=== PATIENT | male | born 1955 | race African-American/Black ===

== ENCOUNTER 2018-12-19 22:37 | Inpatient (IN) | payer OTHER ==
[~2018-12-19] VITALS: Ht 167.6 cm; Wt 91.0 kg
--- NOTE | ~2018-12-19 | EEG ---
[facility] [place] [address] ELECTROENCEPHALOGRAM Name: ALLISON VALVERDE Room #: 246-P ADM IN M.R.#: [id number] ������������������ Admission: 12/20/18 ������������������ Attend Phys: Benny Dewey MD Discharge: ������������������ Date of : 57 Report #: [id number] ����������������������������������������������������������������� [id number] THIS REPORT FOR: //name// CC: Benny Dewey Earl Akkulugari DATE OF SERVICE: 12/25/2018 This patient is being evaluated for altered mental status. EEG was done by placing the electrode by standard 10-20 system of electrode placement. Both referential and sequential montages were used for recording. Background activity in this patient's EEG is about 10 Hz and 30 microvolt. It is a symmetrical activity. Photic stimulation was unremarkable. Throughout the record, no active epileptiform activity was noticed. IMPRESSION: This patient's EEG is fairly well formed and does not appear to be showing any marked abnormality. Thank you very much for this referral. ���������������������������������������� ���������������������������������������� By: ��������������������������������������������� 1823 1834 Vinny Encarnacion MD /nt
[2018-12-19 23:21] LABS: URINE BILIRUBIN NEGATIVE (Negative); URINE BLOOD 2+ (Negative); URINE CLARITY SL CLOUDY; URINE COLOR YELLOW; URINE GLUCOSE-RANDOM* NEGATIVE (Negative); URINE KETONES NEGATIVE (Negative); URINE LEUKOCYTES-REFLEX NEGATIVE (Negative); URINE NITRITE-REFLEX NEGATIVE (Negative); URINE PROTEIN (DIPSTICK) 3+ (Negative); URINE SPECIFIC GRAVITY >= 1.030 (1.005-1.035); URINE UROBILINOGEN 0.2 E.U./dl (0.2-1.0)
[2018-12-19 23:22] LABS: BE(vivo) -11.8 mmol/L (-2 to +3); HCO3 18.4 mmol/L (22.0-26.0); PCO2 64.3 mmHg (35.0-45.0); PO2 524.9 mmHg (80.0-100.0); sO2 99.8 % (92.0-98.0)
[2018-12-19 23:23] LABS: pH 7.075 (7.360-7.450)
[2018-12-19 23:28] LABS: AMP/METHAMP Negative (Negative); BARBITURATES Negative (Negative); BENZODIAZEPINES Negative (Negative); COCAINE Negative (Negative); METHADONE Negative (Negative); OPIATES Negative (Negative); PCP Negative (Negative)
[2018-12-19 23:30] LABS: ABSOLUTE NEUTROPHILS 8.6 thou/uL (1.4-8.2); BASOPHILS 0.3 % (0.0-2.0); HEMATOCRIT 30.7 % (42.0-52.0); HEMOGLOBIN 10.1 gm/dL (14.0-18.0); LYMPHOCYTES 3.4 % (24.0-44.0); MCH 29.4 pg (26.0-34.0); MCV 89.1 fL (80.0-100.0); MONOCYTES 4.6 % (1.0-8.0); PLATELET COUNT 116 thou/uL (150-400); POLYS 91.7 % (36.0-66.0); RBC 3.45 mil/uL (4.50-6.00); RDW 17.3 % (10.5-14.5); WBC 9.4 thou/uL (4.0-11.0)
[2018-12-19 23:33] LABS: AMORPHOUS URATES Many /LPF (None Seen); BACTERIA-REFLEX 1-9 Few /HPF (None Seen); CASTS None Seen /LPF (None Seen); MUCUS >6 Heavy strn/LPF (None Seen); SQUAMOUS 0-3 Few /LPF (0-3); URINE RBC 3-10 Few /HPF (0-2); URINE WBC-REFLEX 0-5 Rare /HPF (0-5)
[2018-12-19 23:49] LABS: ANION GAP 13 mmol/L (7-16); BUN 91 mg/dL (7-18); CALCIUM 8.3 mg/dL (8.5-10.1); CHLORIDE 104 mmol/L (98-107); CO2 20 mmol/L (21-32); CREATININE 5.9 mg/dL (0.7-1.3); GLUCOSE 90 mg/dL (74-106); POTASSIUM 5.9 mmol/L (3.5-5.1); SODIUM 137 mmol/L (136-145)
[2018-12-19 23:58] LABS: TROPONIN-I <0.06 ng/mL (<0.06)
[2018-12-20] VITALS (26 sets, daily range): BP systolic 144–205; BP diastolic 69–108
[2018-12-20] MEDS ORDERED: HUMALOG100 UNIT/1 SUBQ ×2 (00:30→00:39)
[2018-12-20] MEDS ORDERED: RISPERDAL 1 MG T1 MG PO (00:30)
[2018-12-20] MEDS ORDERED: FLOMAX0.4 MG PO (00:31)
[2018-12-20] MEDS ORDERED: LANTUS100 UNIT/M SUBQ (00:31)
[2018-12-20] MEDS ORDERED: LASIX 40 MG TAB40 M2 PO (00:32)
[2018-12-20] MEDS ORDERED: TYLENOL325 MG PO (00:33)
[2018-12-20] MEDS ORDERED: CARVEDILOL12.5 MG PO (00:33)
[2018-12-20] MEDS ORDERED: BENZTROPINE MES1 MG PO (00:38)
[2018-12-20] MEDS ORDERED: LUNESTA3 MG PO (00:39)
[2018-12-20] MEDS ORDERED: AFEDITAB CR60 M1 PO (00:39)
[2018-12-20] MEDS ORDERED: RISPERDAL4 MG PO (00:40)
[2018-12-20] MEDS ORDERED: TRAZODONE HCL100 MG PO (00:40)
[2018-12-20 04:31] LABS: BE(vivo) -7.2 mmol/L (-2 to +3); HCO3 19.5 mmol/L (22.0-26.0); PCO2 44.5 mmHg (35.0-45.0); PO2 187.9 mmHg (80.0-100.0); sO2 99.1 % (92.0-98.0)
--- NOTE | 2018-12-20 05:21 | NUR ---
PT ARRIVED AT 0505 FROM ED VIA STRETCHER. PT INTUBATED ON VENT. PLACED ON TELEMETRY. PT SEDATED WITH PROPOFOL. WILL ADMIT PT.
--- NOTE | 2018-12-20 08:04 | EKG ---
[place] [address] [facility] [place] [address] ELECTROCARDIOGRAM REPORT Name: ALLISON VALVERDE Room #: 246-P ADM IN M.R.#: [id number] ������������������ Admission: 12/20/18 ������������������ Attend Phys: Michael Fish MD Discharge: ������������������ Date of : 57 Report #: [id number] ����������������������������������������������������������������� [id number] THIS REPORT FOR: //name// [facility] ED Test Date: 2018-12-19 Test Time: 23:39:53 Pat Name: ALLISON VALVERDE Department: Room: 246 Gender: M Customer Counter Associate: katie : 1955 Requested By: Kam Lam Order Number: [id number] MD: Quentin Lance Measurements Intervals [place] Rate: 77 P: 79 [place]: 164 QRS: -57 QRSD: 117 T: QT: 411 QTc: 466 Interpretive Statements Sinus rhythm Probable left atrial enlargement Left anterior fascicular block Nonspecific ST segment abnormality No previous ECG available for comparison Electronically Signed On 12-20-2018 8:04:44 CDT by Quentin Lance [email or web address] ��������������������������������������������� <ELECTRONICALLY SIGNED> ���������������������������������������� By: Quentin Lance MD, [facility] ��������������������������������������������� 12/20/18 0804 [id number] Quentin Lance MD, FACC /EPI
--- NOTE | 2018-12-20 09:51 | 2DMMODE ---
[facility] [address] [place] [address] 2 D/M-MODE ECHOCARDIOGRAM Name: ALLISON VALVERDE Room #: 246-P ADM IN M.R.#: [id number] ������������� Admission: 12/20/18 ������������� Attend Phys: Michael Fish MD Discharge: ��� ������������� ��� Date of : 57 Date of Service: 12/20/18 0950 �� Report #: [id number] �������� ��������������������������������������������[id number] THIS REPORT FOR: //name// APPROVED REPORT Study performed: 12/20/2018 09:09:04 EXAM: Comprehensive 2D, Doppler, and color-flow Echocardiogram Patient Location: ICU Room #: 246 Status: routine BSA: 2.15 HR: 64 bpm BP: 170/86 mmHg Rhythm: NSR Other Information Study Quality: Good/Patient in ICU on vent. Indications Pulmonary embolism, short of air. Hx: DM, COPD. 2D Dimensions RVDd: 43.56 mm IVSd: 12.00 (7-11mm) LVOT Diam: 25.11 (18-24mm) LVDd: 56.48 mm PWd: 12.89 (7-11mm) Ascending Ao: 34.37 (22-36mm) LVDs: 43.09 (25-40mm) Aortic Root: 38.83 mm Volumes Left Atrial Volume (Systole) Single Plane 4CH: 59.44 mL Single Plane 2CH: 71.47 mL LA ESV Index: 33.00 mL/m2 Aortic Valve AoV Peak Jose Enrique.: 1.13 m/s AO Peak Gr.: 5.09 mmHg LVOT Max P.18 mmHg LVOT Max V: 0.89 m/s VALERIE Vmax: 3.92 cm2 Mitral Valve E/A Ratio: 1.2 MV Decel. Time: 185.22 ms MV E Max Jose Enrique.: 1.51 m/s [facility] [address] [place] [address] 2 D/M-MODE ECHOCARDIOGRAM Name: ALLISON VALVERDE Room #: [facility] ADM IN M.R.#: [id number] ������������� Admission: 12/20/18 ������������� Attend Phys: Michael Fish MD Discharge: ��� ������������� ��� Date of : 57 Date of Service: 12/20/18 0950 �� Report #: [id number] �������� ��������������������������������������������[id number] MV A Jose Enrique.: 1.26 m/s MV PHT: 53.71 ms IVRT: 76.12 ms Pulmonary Valve PV Peak Jose Enrique.: 0.97 m/s PV Peak Gr.: 3.77 mmHg Tricuspid Valve TR Peak Jose Enrique.: 3.35 m/s RAP Estimate: 10.00 mmHg TR Peak Gr.: 44.86 mmHg PA Pressure: 55.00 mmHg Left Ventricle Left ventricle is at the upper limits of normal. Regional wall motion is grossly normal. Mild concentric left ventricular hypertrophy. Left ventricular systolic function is low normal. LVEF is 50%. Moderate diastolic dysfunction is present (pseudonormal filling). Right Ventricle Right ventricle is at the upper limits of normal. The right ventricular systolic function is normal. Atria Left atrium is at the upper limits of normal. The right atrium size is normal. Aortic Valve The aortic valve is normal in structure. Mild aortic regurgitation. There is no aortic valvular stenosis. Mitral Valve The mitral valve is normal in structure. Severe mitral regurgitation. Tricuspid Valve The tricuspid valve is normal in structure. Mild tricuspid regurgitation. Estimated PAP is 55-60mmHg. Pulmonic Valve The pulmonary valve is normal in structure. Mild pulmonic regurgitation. Great Vessels Aortic root is mildly dilated at 4.0cm. The ascending aorta is normal in size. IVC is normal in size and collapses <50% with inspiration. [facility] [address] [place] [address] 2 D/M-MODE ECHOCARDIOGRAM Name: ALLISON VALVERDE Room #: 246-P ADM IN M.R.#: [id number] ������������� Admission: 12/20/18 ������������� Attend Phys: Michael Fish MD Discharge: ��� ������������� ��� Date of : 57 Date of Service: 12/20/18 0950 �� Report #: [id number] �������� ��������������������������������������������[id number] Pericardium Trace to small posterior pericardial effusion <Conclusion> Left ventricular systolic function is low normal. Regional wall motion is grossly normal. LVEF is 50%. Moderate diastolic dysfunction The aortic valve is normal in structure. Mild aortic regurgitation, no stenosis. The mitral valve is normal in structure. Severe mitral regurgitation. Mild tricuspid regurgitation. Estimated pulmonary artery pressure of 55-60mmHg. IVC is normal in size and collapses <50% with inspiration. ��������������������������������������������� <ELECTRONICALLY SIGNED> ���������������������������������������� By: Quentin Lance MD, [facility] ��������������������������������������������� 12/20/18949 9 9 Quentin Lance MD, FAC /INF
[2018-12-20 10:37] LABS: ALBUMIN 2.1 g/dL (3.4-5.0); CALCIUM 7.7 mg/dL (8.5-10.1); CREATININE 6.1 mg/dL (0.7-1.3)
[2018-12-20 10:40] LABS: POTASSIUM 5.9 mmol/L (3.5-5.1)
--- NOTE | 2018-12-20 10:52 | NUR ---
WOUND CONSULT; BILATERAL ISCHIAL WOUNDS IDENTIFIED CURRENTLY IT IS A STAGE 2, S/S SUGGEST THESE WOUNDS WERE A HIGHER STAGE PREVIOUSLY. RECOMMENDATIONS; APPLY ZGUARD THICKLY EACH TIME THE PATIENT IS TURNED. RN PRESENT
--- NOTE | 2018-12-20 12:05 | NUR ---
Case opened to follow for dc planning. Pt is currently in ICU and unable to complete the cm assessment. Pt's mother Lizzie and Sister Meredith visiting at this time. They report that the pt has been living at [facility] orthotist/prosthetist care since earlier this month. Prior to his admission at [facility] he was in a fdc and hospitalized in [place], [place]. They had him placed here in the area so they could be close to him. The pt recently stopped dialysis about 2 weeks ago. In [facility] he was living at [facility] and it was difficult for family to go and visit him. Nursing is working on getting records from [facility] from his recent inpt hospital stay there. The family reports that he does not have a dpoa or advanced directive in place. He is normally able to make his own decisions and sign paperwork. Message left for admissions at [facility] to confirm they are holding his bed for his return to detention care. Emergency contact info updated and support provided to pt's family. Will follow.
[2018-12-20 12:12] LABS: BE(vivo) -2.8 mmol/L (-2 to +3); PCO2 44.1 mmHg (35.0-45.0); PO2 167.5 mmHg (80.0-100.0); pH 7.335 (7.360-7.450)
--- NOTE | 2018-12-20 12:30 | NUR ---
Pt Mother, sister and brother came by to visit. Propofol was stopped for wake- up assessment. Pt did awaken. Pt opened his eyes and appearted to focus gaze on his family members. Pt attempted to sit up and lean forward in the bed in order to reach his endotracheal tube wtih the restrained hands. Propofol was resumed to prevent accidental extubation. Results of ABG were reported to Dr Garcia.
--- NOTE | 2018-12-20 16:05 | NUR ---
PT RESIDES AT [facility] FAXED H/P TO FACILITY LEFT MSG WITH KERRI IN ADM OF UPDATE FAXED. DCP TO FOLLOW.
--- NOTE | 2018-12-20 19:15 | NUR ---
Pt has remained sedated with Propofol. One dose of Hydralazine given for elevated blood pressure. Large volume of drainage (1400 ml) from OG tube this shift. Gastric drainage is brownish color. Report given to nurse assuming care.
--- NOTE | 2018-12-20 20:39 | NUR ---
[id number] PLACED RT IJ FOR SEPSIS. PLEASE SEE INSERTION NOTE FOR DETAILS
[2018-12-20 22:34] LABS: HEMATOCRIT 27.6 % (42.0-52.0); HEMOGLOBIN 9.2 gm/dL (14.0-18.0)
[2018-12-20 22:42] LABS: CALCIUM 7.8 mg/dL (8.5-10.1); CREATININE 5.9 mg/dL (0.7-1.3); MAGNESIUM 1.8 mg/dL (1.8-2.4)
[2018-12-20 22:49] LABS: POTASSIUM 4.4 mmol/L (3.5-5.1)
[2018-12-21] VITALS (41 sets, daily range): BP systolic 107–208; BP diastolic 66–93
[2018-12-21 05:46] LABS: ABSOLUTE NEUTROPHILS 4.2 thou/uL (1.4-8.2); BASOPHILS 0.4 % (0.0-2.0); EOSINOPHILS 0.6 % (0.0-3.0); HEMATOCRIT 27.3 % (42.0-52.0); HEMOGLOBIN 9.3 gm/dL (14.0-18.0); LYMPHOCYTES 2.3 % (24.0-44.0); MCH 29.6 pg (26.0-34.0); MCHC 33.9 g/dL (28.0-37.0); MCV 87.2 fL (80.0-100.0); MONOCYTES 9.4 % (1.0-8.0); PLATELET COUNT 87 thou/uL (150-400); POLYS 87.3 % (36.0-66.0); RBC 3.13 mil/uL (4.50-6.00); RDW 17.4 % (10.5-14.5); WBC 4.8 thou/uL (4.0-11.0)
[2018-12-21 05:56] LABS: PROTIME 10.7 Seconds (9.3-11.4)
[2018-12-21 06:05] LABS: ALBUMIN 1.9 g/dL (3.4-5.0); DIRECT BILIRUBIN < 0.1 mg/dL (<0.1-0.3); LIPASE 76 U/L (73-393); SGOT 20 U/L (15-37); SGPT 28 U/L (30-65); TOTAL BILIRUBIN 0.2 mg/dL (<0.1-1.0); TOTAL PROTEIN 4.9 g/dL (6.4-8.2)
[2018-12-21 06:10] LABS: ALBUMIN 1.9 g/dL (3.4-5.0); CALCIUM 7.6 mg/dL (8.5-10.1); CREATININE 5.8 mg/dL (0.7-1.3); PHOSPHORUS 9.2 mg/dL (2.5-4.9); POTASSIUM 4.4 mmol/L (3.5-5.1)
--- NOTE | 2018-12-21 06:10 | NUR ---
PT SEDATED ON VENT. FOLLOW SIMPLE COMMANDS, RESTLESS AND AGITATED ON SEDATION VACATION. MEDICATED FOR PAIN RELIEF. SB, BP HIGH, HR IN THE 50S UNABLE TO GIVE LOPRESSOR. TOLERATING VENT SETTINGS. OG IN PLACE, OUTPUT NOTED. URINE OUTPUT NOTED. NO COMPLAINS PRESENTLY. PROTONIX GTT ONGOING, IV FLUIDS AND PROPOFOL AT 8MG/HR. WILL CONTINUE MONITOR.
[2018-12-21 10:18] LABS: BE(vivo) 2.9 mmol/L (-2 to +3); HCO3 27.2 mmol/L (22.0-26.0); PCO2 40.9 mmHg (35.0-45.0); PO2 113.8 mmHg (80.0-100.0); pH 7.441 (7.360-7.450); sO2 98.3 % (92.0-98.0)
--- NOTE | 2018-12-21 10:41 | NUR ---
Nutrition: Pt npo day 2 on vent. REC initiate enteral feeds as medically appropriate-- Nepro to reach 50 mL/hr goal
--- NOTE | 2018-12-21 12:02 | HC ---
[facility] [address] [place] [place] [address] CONSULTATION Name: ALLISON VALVERDE Room #: 246-P ADM IN M.R.#: [id number] Admission: 12/20/18 ������������������ Attend Phys: Benny Dewey MD Discharge: ������������������ Date of : 57 Report #: [id number] THIS REPORT FOR: //name// CC: Michael Alvarez TYPE OF REPORT: Pulmonary consultation. REFERRING PHYSICIAN: Michael Fish M.D. REASON FOR REFERRAL: Acute respiratory failure. HISTORY OF PRESENT ILLNESS: The patient is a 63-year-old white male who was brought to the ED with altered mental status and dyspnea. He was found to be in respiratory distress and was subsequently intubated in the ED. A Pulmonary consultation was requested. Most of the history is obtained from the records as the patient is intubated. The patient has a significant medical history. He has a history of diabetes mellitus, end-stage renal disease. According to records, the patient had recently refused to continue further hemodialysis. Hemodialysis catheter was recently discontinued. The patient had normally lived in a long term at [place], [place] due to mental illness. Due to his medical condition and mental illness, he was recently admitted to a [facility]. He was subsequently transferred to [facility] to be closer to family. The patient was said to be more short of breath on the day of admission along with altered mental status. Narcan was given. The patient apparently responded to Narcan. Currently, he is stable, intubated. PAST MEDICAL HISTORY: Notable for chronic kidney disease; diabetes mellitus; COPD; end-stage renal disease, had been on dialysis recently, though the patient does make urine; history of bipolar disorder; chronic kidney disease and questionable history of pancreatitis. PAST SURGICAL HISTORY: Status post cholecystectomy. ALLERGIES: PROLIXIN, which caused severe agitation and seizure; PENICILLIN, causes altered mental status; BENADRYL, causes headaches; HALDOL causes nausea and vomiting; THORAZINE, causes syncope and he is allergic to CONTRAST DYE and LATEX, reactions unspecified and MELLARIL, reactions unspecified. MEDICATIONS: From the facility include Risperdal 1 mg once a day, insulin supplements, Flomax 0.4 mg p.o. at bedtime, Lasix 40 mg once a day, Coreg 12.[address] [address] CONSULTATION Name: ALLISON VALVERDE Room #: 246-P [facility] IN M.R.#: [id number] Admission: 12/20/18 ������������������ Attend Phys: Benny Dewey MD Discharge: ������������������ Date of : 57 Report #: [id number] mg once a day, Tylenol, Cogentin 1 mg once a day, Lunesta 3 mg p.o. at bedtime, nifedipine 60 mg p.o. b.i.d., Risperdal 4 mg p.o. at bedtime and trazodone 200 mg once a day. FAMILY HISTORY: Noncontributory. SOCIAL HISTORY: Current smoker about a pack a day for the last 48 years. Past history of tobacco use. REVIEW OF SYSTEMS: Deferred as the patient is intubated. PHYSICAL EXAMINATION: GENERAL: He is sedated. VITAL SIGNS: Temperature is 97.7 degrees Fahrenheit, pulse is 60, respiratory rate is 18, blood pressure 177/90 mmHg and saturation 100%. HEENT: Normocephalic and atraumatic. He is orally intubated. NECK: Supple without any lymphadenopathy or thyromegaly. CHEST: Breath sounds are fair with few scattered crackles bilaterally. No wheezes. CARDIOVASCULAR: Normal S1 and S2. No murmurs or gallop. There is no JVD. There is no carotid bruit. Pulses are 2+/4+ bilaterally. ABDOMEN: Soft and nontender. No organomegaly or masses felt. GENITOURINARY: Deferred. RECTAL: Deferred. EXTREMITIES: There is no edema, cyanosis or clubbing. RADIOLOGICAL DATA: Portable chest x-ray shows mild hazy right lung field. ET tube approximately 2 cm above the marisabel. CT head shows no acute abnormalities. Mild maxillary sinusitis. CT angiogram shows no evidence of pulmonary embolus. Trace bilateral pleural effusion. No consolidation. LABORATORY DATA: Initial arterial blood gas revealed pH 7.07, pCO2 of 64 and pO2 524. Sodium 137, potassium 5.9, chloride 104, CO2 is 20, BUN is 91 and creatinine is 5.7. WBC 5400. TSH is 2.1. Hemoglobin 10.0, platelets are mildly decreased. Urine drug screen was negative. UA was notable for a few bacteria. IMPRESSION: 1. Acute mental status change in this 63-year-old white male. According to records, he apparently responded to Narcan. Urine drug screen was negative. Arterial blood gas suggests acute hypercapnic respiratory failure along with mixed metabolic acidosis. Electrolytes reveal hyperkalemia along with elevated creatinine. CT head shows subacute chronic infarct. Etiology of acute mental status is likely related to acute hypercarbia. He apparently responded to Narcan, which is puzzling as urine drug screen was [facility] [address] [place] [address] CONSULTATION Name: ALLISON VALVERDE Room #: [facility] IN Eliu.Aashish.#: [id number] Admission: 12/20/18 ������������������ Attend Phys: Benny Dewey MD Discharge: ������������������ Date of : 57 Report #: [id number] negative. Perhaps the patient may be on other substances as a cause for his mental status change. 2. Acute hypercapnic respiratory failure. As mentioned above, likely related to altered mental status, leading to hypoventilation. It is unclear if he has other processes such as cerebrovascular accident, other drug abuse, etc. He has a history of chronic obstructive pulmonary disease, which is likely contributing but that is the primary cause. 3. Chronic obstructive pulmonary disease, it is unclear whether the patient has chronic hypercapnic respiratory failure. Arterial blood gas suggests it is an acute process. Severity unknown. We would treat for presumed exacerbation for now. 4. Chronic kidney disease/end-stage renal failure, had been on dialysis, this was discontinued according to the records by the patient. He is currently making urine. Renal has been consulted. 5. Diabetes mellitus type 2. 6. Hypertension. 7. Recent diarrhea, rule out Clostridium difficile colitis. 8. Bipolar disorder, may be contributing to medical decision making as mentioned above. 9. Diabetes mellitus type 2. 10. Remote history of possible pancreatitis. RECOMMENDATIONS: We will continue mechanical ventilation, corticosteroids and bronchodilators. Broad-spectrum antibiotics is recommended along with DVT and GI prophylaxis. The patient may need further neurologic workup if he remains encephalopathic. Thank you for this consultation. ��������������������������������������������� <ELECTRONICALLY SIGNED> ���������������������������������������� By: Trever Garcia MD ��������������������������������������������� 12/21/18 1202 1202 [id number] Trever Garcia MD /zev
--- NOTE | 2018-12-21 15:53 | HC ---
[facility] [place] [address] CONSULTATION Name: ALLISON VALVERDE Room #: 246-P ADM IN M.R.#: [id number] Admission: 12/20/18 ������������������ Attend Phys: Benny Dewey MD Discharge: ������������������ Date of : 57 Report #: [id number] THIS REPORT FOR: //name// CC: Benny Alvarez MD DATE OF SERVICE: 12/21/2018 He is a patient of Dr. Earl Alvarez and Dr. Benny Dewey. CHIEF COMPLAINT: This is an intubated 63-year-old -Irish male who I am asked to see because of heme positive coffee-ground emesis after NG tube placement. The patient has been stable overnight with regards to any further evidence of GI blood loss. His stools are brown. His hemoglobin was stable overnight at approximately 9.2 grams. His past medical history and all of the history presented in this GI consultation is obtained from the patient's chart as he does not cooperate or try to answer questions and is on the ventilator. PAST MEDICAL HISTORY: Includes hypertension, chronic renal failure. The patient has been on dialysis twice and has twice refused to continue with dialysis and had the dialysis catheters removed or removed them himself. He has type 2 diabetes mellitus, COPD, chronic kidney disease. He has a mild right maxillary sinusitis on CT scan at this time. He has a possible old left cerebrovascular accident. He has trace bilateral pleural effusions and a pericardial effusion. On CT scan, it appears that he has extensive pancreatic calcifications suggesting previous episodes of pancreatitis of uncertain etiology. The area of low density appearance to the head of the pancreas is thought to be a small pseudocyst possibly. PAST SURGICAL HISTORY: Significant for a cholecystectomy. ALLERGIES: PROLIXIN, PENICILLIN, BENADRYL, HALDOL, THORAZINE, IODINE, LATEX, MELLARIL AND BANANAS. MEDICATIONS: Prior to admission included Tylenol, Cogentin, Coreg, Lunesta, Lasix, Lantus, lispro insulin, nifedipine, Risperdal, Flomax and trazodone. SOCIAL HISTORY: The patient has been institutionalized for the last 30 years and probably has not had access to alcohol or regular drug use. He apparently does continue to smoke 1 pack of cigarettes per day and has done so for 48 years. FAMILY HISTORY: Unable to obtain. [facility] [address] [place] [address] CONSULTATION Name: ALLISON VALVERDE Room #: 246-P [facility] IN [facility]#: [id number] Admission: 12/20/18 ������������������ Attend Phys: Benny Dewey MD Discharge: ������������������ Date of : 57 Report #: [id number] REVIEW OF SYSTEMS: Unable to obtain all because the patient is not able to cooperate with questioning. PHYSICAL EXAMINATION: GENERAL: Reveals a well-developed, well-nourished 63-year-old -Irish male who is currently intubated and on the ventilator, but who is awake. I am not sure how alert and oriented he is because he does not cooperate with testing. HEENT: He appears normocephalic, atraumatic and anicteric. HEART: Rate and rhythm are regular. LUNGS: Clear bilaterally. ABDOMEN: Mildly distended. Bowel sounds are present in all 4 quadrants. There is no palpable organomegaly or mass. There is no tenderness even to deep palpation and no rebound or guarding. EXTREMITIES: Warm and dry. I can appreciate no distal peripheral cyanosis, clubbing or edema. NEUROLOGIC: I cannot test him because he does not cooperate with testing. He appears to be moving all extremities without difficulty as he is fighting with bilateral wrist restraints. SIGNIFICANT LABORATORY DATA: BUN is 96, creatinine is 5.8. Electrolytes are normal. Anion gap is 12, glucose 78, lipase is 76, AST is 20, ALT 28, alkaline phosphatase 78, total bilirubin 0.2, direct bilirubin 0.1, calcium 7.6, phosphorus 9.2, magnesium 1.8, albumin is 1.9, ammonia 24. Alcohol is less than 10. INR is 1.0. His white count is 4.8 this morning, hemoglobin is 9.3, hematocrit 27.3, indices are normal, RDW is 17.4 and platelet count is 87,000. There is 3+ proteinuria, 2+ hematuria. He appeared to have hypercapnic respiratory failure picture on presentation with a pH of 7.075 and pCO2 at 64.3, bicarbonate was 18. Lactate was 1.12. He is intubated and on the vent currently. Gastric contents were guaiac positive. CT of the head without contrast showed left posterior temporoparietal wedge-shaped low density area consistent with a subacute chronic infarct. He has maxillary sinusitis on the right with some mild scattered sinus mucosal thickening. Chest x-ray showed diffuse infiltrate or some pleural effusion, possibly in the right hemithorax. CTA of the chest did not show pulmonary embolism or dissection. There were small bilateral pleural effusions, dense coronary artery calcifications with normal heart size and diffuse dense pancreatic calcification. There are multiple low density lesions throughout the pancreatic head and the right kidney. There is an ill-defined cyst or hemangioma in the liver. The patient has had a cholecystectomy. Venous Dopplers of the lower extremity were negative for DVT in either leg. Did have some soft tissue edema. Ultrasound of the kidneys showed bilateral renal cysts, no hydronephrosis. IMPRESSION: 1. Heme-positive coffee-ground emesis after NG tube placement, likely traumatic tube insertion is the etiology. His H and H has been stable overnight at 9.3. [facility] [address] [place] [address] CONSULTATION Name: ALLISON VALVERDE Room #: 246-P ADM IN M.R.#: [id number] Admission: 12/20/18 ������������������ Attend Phys: Benny Dewey MD Discharge: ������������������ Date of : 57 Report #: [id number] 2. History of chronic renal failure with dialysis in the past. The patient has apparently discontinued dialysis x 2 in the recent past. 3. The patient's sister says the patient makes his own medical decisions, but he has been living in a detention for the past 30 years. 4. The patient appears to have an old left-sided ischemic infarction on CT. 5. Hypertension. 6. Diabetes mellitus type 2. 7. Chronic obstructive pulmonary disease and is a current smoker of 1 pack a day for 48 years. 8. Mild right maxillary sinusitis. 9. Trace bilateral pleural effusions and pericardial effusion. 10. Pancreatic calcifications and possible small pseudocyst. RECOMMENDATIONS: My recommendations are as follows: I would monitor his H and H closely. I agree with the proton pump inhibitors. We will guaiac his stool x 1. I do not have any plans for endoscopy at this time. It is possible that he has been a consumer of alcohol in the past versus some type of hereditary pancreatitis that has led to the pancreatic calcifications that we see on CT scan. Currently, he is n.p.o. while he is on the vent. We are checking stools for C. diff because he was previously hospitalized. We will follow along with you while he is in the hospital. At this time, we do not have any plans for endoscopy. Thank you very much once again for allowing me to participate in his care. ��������������������������������������������� <ELECTRONICALLY SIGNED> ���������������������������������������� By: Kia Alvarez DO ��������������������������������������������� 12/21/18 1553 [id number] Kia Alvarez DO /nt
--- NOTE | 2018-12-21 19:47 | NUR ---
ASSUMED CARE @ 0700 12/21/18, PT ASSESSMENTS AND VSS COMPLETE PER ICU PROTOCOL. PT ON HIGH DOSE PROPOFOL FOR VENT MANAGEMENT, PT HAS HIGH TOLERANCE AND WAKES UP EASILY ON HIGH DOSE, PT ABLE TO FOLLOW SIMPLE COMMANDS BUT GETS AGITATED EASILY. PT SR- SB ON THE MONITOR, PT HAS HX OF HTN, DR MCLEOD CALLED A COUPLE OF TIMES DURING THIS SHIFT TO MANAGE BP, NEW ORDERS RECEIVED. PT ON THE VENT, SEE PROCESS INTERVENTIONS FOR VENT SETTINGS. OG IN PLACE TO LIS, COFFEE GROUND OUTPUT NOTED, DR WEBB FOLLOWING. TEMP DIALYSIS CATH PLACED TODAY, DIALYSIS DONE TODAY, 1 L PULLED OFF TODAY, PT TOLERATED WELL, NICE IN PLACE OK OUPUT NOTED. DR BUCIO CONSULTED FOR HX OF BIPOLAR DISEASE. MOTHER CALLED TWICE, CODE VERIFIED, MOTHER UPDATED. PLAN OF CARE- CONT TO MONITOR.
[2018-12-22] VITALS (24 sets, daily range): BP systolic 114–185; BP diastolic 64–103
[2018-12-22 01:05] LABS: HEP B SURFACE Ab(ANTI-HBS Reactive (()); HEPATITIS B SURFACE AG Negative (Negative)
[2018-12-22 06:05] LABS: HEMATOCRIT 27.4 % (42.0-52.0); HEMOGLOBIN 9.3 gm/dL (14.0-18.0); MCH 29.7 pg (26.0-34.0); MCHC 33.9 g/dL (28.0-37.0); MCV 87.7 fL (80.0-100.0); RBC 3.12 mil/uL (4.50-6.00); RDW 17.6 % (10.5-14.5); WBC 5.1 thou/uL (4.0-11.0)
--- NOTE | 2018-12-22 06:05 | NUR ---
PT SEDATED ON VENT. CURRENTLY ON 65 MCGS PROPOFOL. MEDICATED FOR PAIN. AFEBRILE. VSS. TOLERATING VENT SETTINGS. SR-SB ON MONITOR, BP ELEVATED AT TIMES, HYDRALYZINE GIVEN X1. OUTPUT NOTED FOR OG AND NICE. FREQUENT TURNS. Z-GUARD APPLIED TO BILATERAL ISCHIAL WOUNDS. WILL CONTINUE TO MONITOR
[2018-12-22 06:15] LABS: ALBUMIN 1.8 g/dL (3.4-5.0); CALCIUM 7.7 mg/dL (8.5-10.1); PHOSPHORUS 7.6 mg/dL (2.5-4.9); POTASSIUM 4.4 mmol/L (3.5-5.1)
[2018-12-22 06:17] LABS: CREATININE 4.3 mg/dL (0.7-1.3)
--- NOTE | 2018-12-22 11:14 | NUR ---
WOUND CARE FOLLOW UP; THE BILATERAL WOUNDS STAGE 3 ISCHIAL PRESSURE WOUNDS ARE STABLE AT THIS TIME. NO SIGNIFICANT ASSESSMENT CHANGES. WE WILL CONTINUE TO USE ZGUARD DAILY/PRN RN PRESENT
[2018-12-22 12:13] LABS: BE(vivo) 0.7 mmol/L (-2 to +3); HCO3 25.6 mmol/L (22.0-26.0); PCO2 42.3 mmHg (35.0-45.0); PO2 85.9 mmHg (80.0-100.0); sO2 96.5 % (92.0-98.0)
--- NOTE | 2018-12-22 16:04 | NUR ---
SW reviewed chart and spoke with nursing and attending physician. Pt remains in ICU. Pt is intubated/sedated. Pt remais on IV abx. Pt had temporary dialysis catheter placed yesterday and dialyzed yesterda and today. Update provided to [facility] liaison. No weekend discharge planned. MARILIN is following to assist as needed with discharge planning.
--- NOTE | 2018-12-22 16:05 | NUR ---
on-going assessment: PT REMAINS ON VENTILATOR. PT STILL ON IV ANBX. PT GETTING DIALYSIS TODAY. NO WEEKEND DISCHARGE ANTICIPATED. CM UPDATED LIASON FROM [facility]. CM WILL CONTINUE TO FOLLOW TO ASSIST NEEDED.
--- NOTE | 2018-12-22 19:59 | NUR ---
PT RESTLESS AT TIMES TODAY. VERY IMPULSIVE, RESTLESS, AGITATED IF PROPOFOL DECREASED. GIVEN HALDOL AND RISPERIDOL ORDERED. PT HAD DIALYSIS WITH NET UF OF 2000ML. SPOKE WITH PT'S MOTHER AND UPDATED HER. STARTED ON TUBE FEEDING. TOLERATING WELL WITH MINIMAL RESIDUAL. REPORT GIVEN TO STONE SANDBLASTER RN.
[2018-12-23] VITALS (57 sets, daily range): BP systolic 69–184; BP diastolic 46–139
[2018-12-23 04:29] LABS: HEMATOCRIT 26.9 % (42.0-52.0); MCH 29.5 pg (26.0-34.0); MCHC 33.4 g/dL (28.0-37.0); MCV 88.4 fL (80.0-100.0); RBC 3.04 mil/uL (4.50-6.00); RDW 17.4 % (10.5-14.5); WBC 5.8 thou/uL (4.0-11.0)
[2018-12-23 04:44] LABS: ALBUMIN 1.8 g/dL (3.4-5.0); CALCIUM 7.3 mg/dL (8.5-10.1); CREATININE 3.6 mg/dL (0.7-1.3); PHOSPHORUS 6.2 mg/dL (2.5-4.9); POTASSIUM 4.1 mmol/L (3.5-5.1)
[2018-12-23 05:29] LABS: BE(vivo) 1.7 mmol/L (-2 to +3); HCO3 26.9 mmol/L (22.0-26.0); PCO2 45.2 mmHg (35.0-45.0); PO2 96.7 mmHg (80.0-100.0); pH 7.393 (7.360-7.450); sO2 97.3 % (92.0-98.0)
--- NOTE | 2018-12-23 06:14 | NUR ---
ASSUMED PATIENT CARE AT 1900. PATIENT LYING IN BED WITH EYES SHUT AND ON THE VENTILATOR. PROPOFOL IS INFUSING. PATIENT FOLLOWS COMMANDS. PROTONIX IS ALSO INFUSING. PATIENT GIVEN SCHEDULED RISPERDONE AND HALDOL TO MANAGE ANXIETY. PATIENT NOTED TO HAVE 2 PRESSURE ULCERS. ZGUARD APPLIED ORDERED. PATIENT IS PROGRESSING TOWARD GOAL.
--- NOTE | 2018-12-23 19:26 | NUR ---
1000 pt sedated on ventilator, propofol turn off, pt opens eyes, move toes, follows some commands, reached for ET tube. 1015 Pt resedated, KO updated, will attempted cpap tomorrow. Updated pt mother on status and POC. vital signs stable, pain controlled, family agrees with plan of care.
[2018-12-24] VITALS (66 sets, daily range): BP systolic 105–178; BP diastolic 52–89
[2018-12-24 05:07] LABS: CALCIUM 7.3 mg/dL (8.5-10.1); CREATININE 2.8 mg/dL (0.7-1.3); POTASSIUM 3.9 mmol/L (3.5-5.1)
--- NOTE | 2018-12-24 06:04 | NUR ---
ASSUMED PATIENT CARE AT 1900. PATIENT IS LYING IN BED AND IS ON THE VENTILATOR AND IS ALSO MILDLY SEDATED WITH PROPOFOL INFUSING. PATIENT WAKES TO VOICE COMMAND AND SQUEEZES HAND WHEN INSTRUCTED TO DO SO. PATIENT GIVEN PRN HYDRALIZINE FOR SBP IN 190'S. NO ACUTE EVENTS OCCURRED DURING THIS SHIFT. PATIENT REMAINS UNCHANGED ON PROGRESSING TOWARD GOAL.
--- NOTE | 2018-12-24 13:08 | NUR ---
ASSUMED CARE @ 0700 12/24/18, PT ASSESSMENTS AND VSS COMPLETE PER ICU PROTOCOL. PT NOT FOLLOWING COMMANDS EVEN ON SEDATION VACATION, PROPOFOL GTT IN PLACE. PT SR ON THE MONITOR, PT AFEBRILE. OG IN PLACE TO TF GOING AT GOAL, LOW RESIDUALS NOTED. NICE IN PLACE, LOW OUTPUT NOTED. REPORT GIVEN TO JESICA MADDEN. PLAN OF CARE- CONT TO MONITOR.
--- NOTE | 2018-12-24 13:34 | NUR ---
RECIEVED REPORT FROM KALIA MADDEN.
--- NOTE | 2018-12-24 18:19 | NUR ---
NOTICED PT'S TEMP ELEVATING AT THE END OF SHIFT. INFORM DR MARIE AND PLACE CONSULT FOR DR. TOVAR. INSTRUCTED TO OBTAIN BLOOD AND URINE CULTURES. PT WAKING UP WITH SEDATION BEING TURNED DOWN. WULL CONTINUE TO ASSESS.
--- NOTE | 2018-12-24 18:48 | NUR ---
BEDSIDE REPORT GIVEN TO NIGHT RN.
[2018-12-25] VITALS (16 sets, daily range): BP systolic 136–184; BP diastolic 68–87
--- NOTE | 2018-12-25 04:17 | NUR ---
ASSUMED CARE OF PT. AT 1900. PT. IS RESTLESS AT TIMES AND HAS NOT SLEPT AT ALL THROUGHOUT SHIFT. HYDRALIZINE ADMINISTERED X1 FOR HTN. HEART RATE AND RHYTHM WITHIN NORMAL LIMITS. OK URINARY OUTPUT. PLAN OF CARE IS TO PERFORM HEMODIALYSIS TODAY AND GET EEG DONE. POSSIBLE CPAP? WILL CONTINUE TO MONITOR.
[2018-12-25 05:39] LABS: HEMATOCRIT 27.8 % (42.0-52.0); HEMOGLOBIN 9.5 gm/dL (14.0-18.0); MCH 29.8 pg (26.0-34.0); MCHC 34.1 g/dL (28.0-37.0); MCV 87.4 fL (80.0-100.0); RBC 3.18 mil/uL (4.50-6.00); RDW 17.1 % (10.5-14.5); WBC 6.8 thou/uL (4.0-11.0)
[2018-12-25 05:40] LABS: CALCIUM 7.8 mg/dL (8.5-10.1); CREATININE 3.7 mg/dL (0.7-1.3); POTASSIUM 3.9 mmol/L (3.5-5.1)
[2018-12-25 05:41] LABS: BE(vivo) 1.1 mmol/L (-2 to +3); HCO3 26.2 mmol/L (22.0-26.0); PCO2 43.6 mmHg (35.0-45.0); PO2 86.4 mmHg (80.0-100.0); pH 7.396 (7.360-7.450); sO2 96.5 % (92.0-98.0)
[2018-12-25 16:14] LABS: BE(vivo) 2.2 mmol/L (-2 to +3); HCO3 27.4 mmol/L (22.0-26.0); PCO2 45.6 mmHg (35.0-45.0); PO2 86.9 mmHg (80.0-100.0); pH 7.397 (7.360-7.450); sO2 96.5 % (92.0-98.0)
--- NOTE | 2018-12-25 18:22 | NUR ---
PT IS ALERT AND COOPERATIVE. EXTUBATED THIS AFTER NOON. ON 7 LITERS NASAL CANULA WATCHING TV. OXYGEN SATURATION IS 100 PERCENT. FAMILY AT BED SIDE FOR SUPPORT. LUNGS ARE CLEAR TO DIMINISHED. BOWEL SOUNDS ACTIVE. NICE TO DD WITH LAURIE URINE PRSENT. PT HAD HEMODIALYSIS TODAY. Z GUARD BARIER CREAM TO COCCYX. NO ISSUES OR CONCERNS NOTED AT THIS TIME.
[2018-12-26] VITALS (20 sets, daily range): BP systolic 141–182; BP diastolic 58–93
[2018-12-26 05:36] LABS: HEMATOCRIT 26.7 % (42.0-52.0); HEMOGLOBIN 8.6 gm/dL (14.0-18.0); MCH 28.6 pg (26.0-34.0); MCHC 32.4 g/dL (28.0-37.0); MCV 88.5 fL (80.0-100.0); RBC 3.01 mil/uL (4.50-6.00); RDW 17.2 % (10.5-14.5); WBC 5.2 thou/uL (4.0-11.0)
[2018-12-26 05:49] LABS: CALCIUM 7.7 mg/dL (8.5-10.1); CREATININE 2.8 mg/dL (0.7-1.3); POTASSIUM 3.8 mmol/L (3.5-5.1)
--- NOTE | 2018-12-26 07:31 | NUR ---
No event tonight. Pt remains stable in this shift. No changes of cardiac rhtyhm. Mildly HTN, improved with lopressor IV. Keep NPO until being evaluate by Speech therapist due to high risk of aspiration. Turn q 2 hrs, no changes of skin issues. Report hand of to am shift RN.
--- NOTE | 2018-12-26 11:00 | NUR ---
1100 - PT TO IR FOR TUNNELED DIALYSIS CATH PLACEMENT
--- NOTE | 2018-12-26 16:08 | NUR ---
MARILIN reviewed chart and spoke with nursing and attending physician. Pt was extubated yesterday and had tunneled catheter placed earlier today in IR. Pt will have dialysis tomorrow. Pt will need outpatient dialysis arranged. Pt was set up with a [facility] dialysis clinic in [place], [place], prior to moving to [facility] earlier this month. MARILIN contacted [facility] central intake. Pt was set up with the [facility] ( ) on a -R- [address] call to the [facility] in [facility] and spoke with Toña, who states that pt came to his first treatment and did not complete the first treatment. Pt also did not complete the admission ppwk. Pt would be a new admission to [facility]. Pt unable to communicate effectively at this time. MARILIN spoke with pt's sister, Meredith, via phone to discuss new outpatient dialysis clinics ([facility] or [facility]). Pt's sister does not have preference. MARILIN discussed with [facility] liaisonBecca. Their pts dialyze at [facility] or [facility], due to location. MARILIN faxed clinical info to intake at [facility] and spoke with Juliane in intake at [facility] to notify of new referral. MARILIN is following to assist as needed with discharge planning.
--- NOTE | 2018-12-26 19:17 | NUR ---
CALL RECEIVED FROM [employer] - WILL NEED UPDATE WHEN PT IS DISCHARGED - JARETT LING [phone]
[2018-12-27] VITALS (26 sets, daily range): BP systolic 141–190; BP diastolic 61–100
--- NOTE | 2018-12-27 05:40 | NUR ---
AOX1, CONFUSED. FOLLOW COMMANDS. AFEBRILE. BP ELEVATED DURING THE NIGHT MEDICATED. DENIED PAIN. FREQUENT TURNS DURING THE NIGHT. NO COMPLAINS PRESENTLY. PT PORGRESSING TOWARDS GOALS
[2018-12-27 06:49] LABS: % SATURATION 23 % (20-39); IRON 41 ug/dL (65-175); TIBC 181 ug/dL (250-450)
[2018-12-27 06:51] LABS: ALBUMIN 1.8 g/dL (3.4-5.0); CALCIUM 7.9 mg/dL (8.5-10.1); CREATININE 3.7 mg/dL (0.7-1.3); PHOSPHORUS 4.8 mg/dL (2.5-4.9); POTASSIUM 3.5 mmol/L (3.5-5.1)
--- NOTE | 2018-12-27 12:22 | NUR ---
MARILIN reviewed chart and spoke with attending physician. Pt is progressing towards goals for discharge back to [facility] with outpatient dialysis. MARILIN spoke with Juliane in intake at [facility], who states that the clinical mgr needs to review the information to ensure they are able to accept pt. Awaiting input from [facility] at this time. MARILIN spoke with pt's sister, Meredith, via phone to provide update and discuss arranging pt's outpatient dialysis and that pt will be ready for discharge once dialysis is in place. Pt's sister verbalized understanding and is agreeable with plan. Pt's sister is in agreement with pt going to either a [facility] or [facility]. MARILIN is following to assist as needed with discharge planning.
--- NOTE | 2018-12-27 13:28 | NUR ---
1200 PT REPORT GIVEN TO CCU RN, PT IN MRI AND WILL BE TAKEN TO RM 207 AFTER TESTING. PT ALERT X2, VITAL SIGNS STABLE, NO BELONGINGS TO SEND WITH PT AT TIME OF TRANSFER.
--- NOTE | 2018-12-27 17:55 | NUR ---
PATIENT ARRIVED FROM MRI VIA CHAIR, ALERT TO SELF AND SITUATION,IMPULSIVE AND SOME COMMANDS. BP ELEVATED AND MEDICATED INDICATED. WILL CONTINUE WITH POC.
[2018-12-28] VITALS (8 sets, daily range): BP systolic 147–179; BP diastolic 58–90
--- NOTE | 2018-12-28 05:56 | NUR ---
RECEIVED PT'S CARE AT 1900; PT. ON CHAIR; DURING ASSESSMENT ALERT TO PERSON; PLACE; TIME; NO TO SITUATION; C/O HEADACHE; 03/20; REFUSED PRN PAIN MEDICATION; SBP 170'S; SCHEDULE MEDICATION GIVEN; REQUESTED SOMETHING TO EAT AROUND 2300; YOGURTH GIVEN; AT 0100 SBP 140; ABLE TO REST A FEW HOURS; EARLY SBP ON THE 170'S; SCHEDULE BP MEDICATION GIVEN; WOUND CARE PERFORMED; ASSESSMENT CHARGED; FOLLOWING POC; WILL PASS ON REPORT;
--- NOTE | 2018-12-28 10:07 | HC ---
[facility] [place] [address] CONSULTATION Name: ALLISON VALVERDE Room #: 216-P ADM IN M.R.#: [id number] Admission: 12/20/18 ������������������ Attend Phys: Benny Dewey MD Discharge: ������������������ Date of : 57 Report #: [id number] THIS REPORT FOR: //name// CC: Michael Elliott Akkulugari DATE OF SERVICE: 12/20/2018 NEPHROLOGY CONSULTATION: ATTENDING PHYSICIAN: Dr. Dewey. REASON FOR CONSULTATION: Chronic kidney disease. HISTORY OF PRESENT ILLNESS: History is quite scanty. I did talk to the family at length. The patient is a resident of a senior living in [place], [place], has been in and out of the hospital up there with chronic kidney disease, had been on some dialysis briefly and the patient decided he did not want it, pulled his dialysis catheter out, he was in a facility down in this area for rehabilitation and apparently became short of air with mental status changes. He came to the Emergency Room. He was intubated and his creatinine was 5.9 and potassium was 5.9. MEDICATIONS: At the facility are as follows: Cogentin 1 mg daily, carvedilol 12.5 mg b.i.d., furosemide 40 mg daily, insulin, nifedipine 60 mg b.i.d., Risperdal 40 mg at bedtime, Flomax 0.4 mg daily, trazodone 200 mg at bedtime. FAMILY HISTORY: No renal disease. SOCIAL HISTORY: He is a heavy smoker, lives in a senior living, apparently there is some substantial mental compromise which is chronic. REVIEW OF SYSTEMS: Cannot be taken as he is intubated in the ICU. PHYSICAL EXAMINATION: GENERAL: This is a chronically ill-appearing patient. He has an endotracheal tube, intubated and he is on propofol drip and sedated. SKIN: Otherwise, unremarkable. SKELETAL: Well developed, well nourished. HEENT: Extraocular movements cannot really be tested. Endotracheal tube is in place. NECK: Supple. CHEST: Shows slightly diminished breath sounds. HEART: Regular. ABDOMEN: Soft and nontender. Quezada catheter is in place. EXTREMITIES: Show no edema. Pulses intact. [facility] [address] [place] [address] CONSULTATION Name: ALLISON VALVERDE Room #: 216-P ADM IN [facility].#: [id number] Admission: 12/20/18 ������������������ Attend Phys: Benny Dewey MD Discharge: ������������������ Date of : 57 Report #: [id number] LABORATORY DATA: Urinalysis did show proteinuria. Hemoglobin 10.1. Sodium 137, potassium 5.9, chloride 104, bicarbonate 20, BUN 91, creatinine 5.9. ASSESSMENT: 1. Respiratory failure, unclear as to etiology, is a heavy smoker. I suspect this is simply exacerbation of his chronic obstructive pulmonary disease. He did not have infiltrates to suggest fluid overload. He did have a CT angiogram, which did not show any pulmonary emboli. He did have very small pleural effusions which I do not believe is compromising his respiratory status. 2. Chronic kidney disease. He appears to have diabetes, chronic kidney disease and some proteinuria. He may also have urinary retention. He is making good urine on the Quezada catheter. I will give him some IV fluids and see how he does there. 3. Chronic cognitive impairment. He lives in a senior living. There was some difficulty there obviously. 4. Diabetes mellitus. 5. Hypertension. I will give him a clonidine patch. ��������������������������������������������� <ELECTRONICALLY SIGNED> ���������������������������������������� By: Andrew Qiu MD ��������������������������������������������� 12/28/18 1007 [id number] Andrew Qiu MD /nt
--- NOTE | 2018-12-28 10:41 | NUR ---
WOUND CARE FOLLOW UP; THE PATIENTS CONDITION HAS IMPROVED AND HAS ADVANCED TO CCU. UPON THE ASSESSMENT THE PATIENT WAS UP IN A CHAIR. THE WOUNDS ARE TO THE BILATERAL ISCHIAL TUBEROSITIES. WHILE THE PATIENT WAS SUPINE PRESSURE WAS NOT AN ISSUEAND NOW IT IS. WOUND BEDS LOOK HEALTY AND VIABLE. THE WOUNDS ARE HEALING WELL. RECOMMENDATIONS; 1-LOW AIR LOSS PUMP. 2-LIMIT TIME UP IN CHAIR TO ONE HOUR AT A TIME. 3-WHILE IN BED THE HEAD OF BED NO HIGHER THAN 30 DEGREES 4- ADD A BOARDERED FOAM TO DRESSING CHANGE 5- USE ALTERNATING PILLOW LEFT TO RIGHT WHILE IN CHAIR DISCUSSED WITH RN
--- NOTE | 2018-12-28 10:47 | NUR ---
MARILIN reviewed chart. Pt was transferred to CCU from ICU. AMRILIN spoke with Juliane at [facility] intake, who states that their clinical transit planning manager is still reviewing pt's info. Awaiting Hep B core panel results to submit to [facility], should the [facility] clinics not be able to accept pt. MARILIN is following to assist as needed with discharge planning.
--- NOTE | 2018-12-28 11:06 | NUR ---
PT'S MOTHER CALLED AND WITH PT'S PERMISSION GAVE BRIEF REPORT. LET PT KNOW SHE MENTIONS SHE'LL TRY TO COME UP AND VISIT TOMORROW OR TUESDAY, IF APPLICABLE
--- NOTE | 2018-12-28 14:26 | NUR ---
MET WITH JARETT VELASQUEZ, FORENSIC APPLICATION DESIGN ENGINEER FROM [facility] DEPT OF MENTAL HEALTH, SHE FOLLOWS PT IN COMMUNITY MONTHLY. PT AGREEABLE TO CM SPEAKING WITH JARETT ABOUT DETAILS OF HOSPITALIZATION AND PROVIDED HER PT'S PSYCH MED REGIMEN AND WILL FAX DC SUMMARY AND MED LIST AT DC PER HER REQUEST. ALSO PROVIDED MS [facility] CONTACT INFO FOR [facility] AND THEIR CLINICAL LIASON, [facility]. ALSO UPDATED [facility] AND PROVIDED MS. LING'S CONTACT INFO.
--- NOTE | 2018-12-28 18:16 | NUR ---
VASCULAR ACCESS ROUNDING. CENTRAL LINE APPROPRIATE AT THIS TIME. THIS PATIENT IS A DIAYSIS PATIENT THAT IS DIFFICULT TO MAITAIN A PIV ON. HE CONTINUES ON IV ANTIBIOTICS INCLUDING VANCOMYCIN AND DAILY IRON INFUSIONS. WE WILL MONITOR DAILY
--- NOTE | 2018-12-28 18:18 | NUR ---
ASSUMED CARE OF PT AT SHIFT CHANGE. ASSESSMENTS CHARTED. MEDS GIVEN PER SEP. PT ALERT AND ORIENTED, VSS, DENIES PAIN, UP X1 ASSIST TOLERATING WELL. APPEITITE ADEQUATE, PT URINATES PER URINAL, HAD BM THIS SHIFT. O2 SATS WNL ON ROOM AIR, NO S/SX OF CARD OR RESP DISTESS NOTED. DENIES CONCERNS AT THIS TIME. CONTINUING TO MONITOR.
--- NOTE | 2018-12-28 21:55 | HC ---
[facility] [address] CONSULTATION Name: ALLISON VALVERDE Room #: 216-P ADM IN M.R.#: [id number] Admission: 12/20/18 ������������������ Attend Phys: Benny Dewey MD Discharge: ������������������ Date of : 57 Report #: [id number] THIS REPORT FOR: //name// CC: Benny Elliott Akkulugari DATE OF SERVICE: 12/25/2018 REASON FOR CONSULTATION: I was asked to evaluate concerning fever. HISTORY OF PRESENT ILLNESS: The patient was a 63-year-old with underlying history of end-stage renal disease, diabetes, bipolar disorder, lives in a shelter. He has been in and out of the hospital most recently. Actually came off dialysis for unclear reasons. Presents now with shortness of breath, respiratory failure and placed back on dialysis. He was hospitalized on 12/20/2018. Yesterday, he had temperature of over 38.5 degrees. Hemodynamically, he has remained stable. No increased tracheal secretions. Initial blood cultures and sputum culture were negative. He had a negative urine culture. The patient was now awake without specific complaints. Denies any nausea or vomiting. There has been no diarrhea. He has small volume urine output. Has a temporary dialysis catheter and a central venous catheter placed in the right IJ region. No purulent drainage from these, some oozing otherwise. No increased tracheal secretions. No rashes or decubiti. REVIEW OF SYSTEMS: A 10-point review of systems is negative other than described above. PAST MEDICAL HISTORY: Diabetes, end-stage renal disease, bipolar disorder, pancreatitis, cholecystectomy. ALLERGIES: PROLIXIN, PENICILLIN WITH CHANGE IN MENTAL STATUS, BENADRYL, HALDOL, THORAZINE, CONTRAST DYE, LATEX, MELLARIL. MEDICATIONS: As noted on his MAR including vancomycin and aztreonam. FAMILY HISTORY: Noncontributory. SOCIAL HISTORY: He is a smoker of cigarettes. No significant alcohol intake. Lives in a shelter. PHYSICAL EXAMINATION: VITAL SIGNS: Currently afebrile and hemodynamically stable. He is on 30% FiO2. GENERAL: Minimal tracheal secretions. No rash or decubiti. No palpable adenopathy. Right IJ catheters with some bloody drainage evident. EYES: Without scleral icterus. MOUTH: Without mucositis. [address] [address] CONSULTATION Name: ALLISON VALVERDE Room #: 216-P [facility] IN M.R.#: [id number] Admission: 12/20/18 ������������������ Attend Phys: Benny Dewey MD Discharge: ������������������ Date of : 57 Report #: [id number] NECK: Supple. LUNGS: Clear anteriorly with few crackles in the bases bilaterally. HEART: Regular, without murmur, gallop or rub. ABDOMEN: Soft, nontender, no hepatosplenomegaly or mass. EXTREMITIES: Unremarkable with no cyanosis, clubbing or edema. NEUROLOGIC: Able to move upper and lower extremities normal. Sensation intact. Cranial nerves intact. PSYCHIATRIC: Mood appeared normal. BACK: Nontender. LABORATORY STUDIES: Sodium 133, potassium 3.9, bicarbonate 27, creatinine 3.7. Liver function tests normal. Hemoglobin 9.5, platelet count 95,000, white count 6.8. MRSA screen positive. Urinalysis was unremarkable. Blood and urine cultures are negative. Sputum normal andrew. Chest x-ray, bilateral lower lobe atelectasis. IMPRESSION: A 63-year-old with diabetes, end-stage renal disease, chronic obstructive pulmonary disease, respiratory failure. Initially had encephalopathy, which has improved, now back to apparent baseline. Unclear yet as to the etiology of his initial decline other than renal failure with no dialysis and azotemia. Source of his fever I would suspect to be most likely pulmonary. Other issues include bipolar disorder, thrombocytopenia, diabetes, and hypertension. RECOMMENDATION: We will continue with vancomycin and ceftazidime. We will use this while awaiting culture results obtained yesterday. I do not think we need aztreonam at this point. He has had no further fever or leukocytosis in the past 24 hours. We will see how he does as we continue dialysis program and ventilatory weaning. ��������������������������������������������� <ELECTRONICALLY SIGNED> ���������������������������������������� By: Tariq Fernandes MD ��������������������������������������������� 12/28/18 2155 [id number] Tariq Fernandes MD /nt
[2018-12-29 04:16] VITALS: BP 179/63
--- NOTE | 2018-12-29 04:36 | NUR ---
RECEIVED PT'S CARE AT 1936; PT. SITTING ON CHAIR; ALERT; ISOLATION MANTAINED; DURING ASSESSMENT ALERT TO PLACE & PERSON; FORGETFUL; EDUCATED ABOUT CALLING BEFORE STANDING UP; ST. UNDERSTANDING; TRIED TO STAND UP WITHOUT CALLING TWICE DURING THE NIGHT; INCONTINENT; ABLE TO REST A FEW HOURS DURING THE NIGHT; ASSESSMENT CHARGED; FOLLOWING POC; MONITORING; WILL PASS ON REPORT.
[2018-12-29 05:42] LABS: ABSOLUTE NEUTROPHILS 6.2 thou/uL (1.4-8.2); BASOPHILS 0.2 % (0.0-2.0); EOSINOPHILS 1.6 % (0.0-3.0); HEMATOCRIT 28.4 % (42.0-52.0); HEMOGLOBIN 9.3 gm/dL (14.0-18.0); LYMPHOCYTES 3.9 % (24.0-44.0); MCH 29.1 pg (26.0-34.0); MCHC 32.6 g/dL (28.0-37.0); MCV 89.3 fL (80.0-100.0); PLATELET COUNT 152 thou/uL (150-400); POLYS 85.3 % (36.0-66.0); RBC 3.19 mil/uL (4.50-6.00); RDW 17.6 % (10.5-14.5); WBC 7.3 thou/uL (4.0-11.0)
[2018-12-29] MEDS ORDERED: PANTOPRAZOLE SO40 M1 PO (14:18)
[2018-12-29] MEDS ORDERED: CATAPRES-TTS 20.2 MG TRANSDERM (14:18)
[2018-12-29] MEDS ORDERED: AMLODIPINE BESYL5 M1 PO (14:18)
[2018-12-29 14:27] VITALS: BP 151/80
--- NOTE | 2018-12-29 14:42 | NUR ---
Pt dcing back to termite treater helper care at [facility] today via w/c van. Outpt dialysis has been confirmed with [facility] for start of care tuesday at [facility] clinic at 6:15am. His arrival time will need to be 5:45am. [facility] liason notified and they will arrange transport. The dc capacity planner will fax dc orders to both the jail and the dialysis clinic as well as confirm the dc time with the pt's mother. The pt and nursing have been updated as well.
--- NOTE | 2018-12-29 15:17 | NUR ---
PT DISCHARGING TODAY TO [facility] FAXED DC ORDERS/SUMMARY TO FACILITY. TRANSPORTATION ARRRANGED BY FACILITY WC VAN AT 1730. DCP TRIED NOTIFYING PT'S MOTHER AND NO ANSWER OR VOICEMAIL, LEFT MSG WITH SISTER ON HER VOICEMAIL OF DISCHARGE AND TIME OF TRANSPORT. UNIT NOTIFIED AND CHART COPY PER US. DCP FAXED DIALYSIS FLOWSHEETS TO [facility] WITH DC ORDERS. RN TO CALL REPORT TO [phone].
--- NOTE | 2018-12-29 15:39 | NUR ---
ATTEMPTED TO CALL REPORT TO NURSE AT [facility] 3 TIMES AT 1524, 1527, AND 1535 WITH NO ANSWER OR RESPONSE. WILL ATTEMPT TO GIVE REPORT AGAIN.
--- NOTE | 2018-12-29 16:13 | NUR ---
ASSUMED CARE OF PT AT SHIFT CHANGE. ASSESSMENTS CHARTED. MEDS GIVEN PER SEP. PT ALERT AND ORIENTED TO PERSON AND PLACE, FORGETFUL AT TIMES. VSS, DENIES PAIN. O2 SATS WNL ON ROOM AIR. NO S/SX OF CARD OR RESP DISTRESS NOTED. APPETITE FAIR. PT HAD DIALYSIS TODAY, TOLERATED WELL. WOUND CARE PERFORMED PER WOUND CARE ORDERS. PLAN IS FOR PT TO DC TODAY BACK TO [facility], DIALYSIS ARRANGED PER CASE MANAGEMENT. ATTEMPTED TO CALL REPORT 5 TIMES TO FACILITY-- REFER TO NOTE. PT DENIES CONCERNS AT THIS TIME. WILL CONTINUE TO MONITOR AND FOLLOW POC UNTIL PT DC'D TO [facility] TODAY.
[2018-12-29 17:17] VITALS: BP 176/80
--- NOTE | 2018-12-29 18:23 | NUR ---
SUCCESSFUL REPORT CALLED TO JOSEPH AT [facility] AT 1814
== END 2018-12-29 17:55 | DRG 207 ==
LOC: ER 22:37 → 2N 12-20 04:33 → ICU 12-20 04:33 → EROBS 12-20 04:33 → ICU 12-20 05:01 → 2N 12-27 12:40
PROVIDERS: Emergency Medicine; Internal Medicine; Internal Medicine Gastroenterology; Internal Medicine Nephrology; Internal Medicine Pulmonary Disease; Nurse Practitioner Acute Care; Specialist; ADMIT Hospitalist
PROC: 0BH17EZ Insertion of Endotracheal Airway into Trachea, Via Natural or Artificial Opening (ICD-10-PCS; principal; 2018-12-20)
PROC: 5A1955Z Respiratory Ventilation, Greater than 96 Consecutive Hours (ICD-10-PCS; principal; 2018-12-20)
PROC: 02HV33Z Insertion of Infusion Device into Superior Vena Cava, Percutaneous Approach (ICD-10-PCS; 2018-12-21)
PROC: 5A1D70Z Performance of Urinary Filtration, Intermittent, Less than 6 Hours Per Day (ICD-10-PCS; 2018-12-21)
PROC: B5181ZA Fluoroscopy of Superior Vena Cava using Low Osmolar Contrast, Guidance (ICD-10-PCS; 2018-12-21)
PROC: B548ZZA Ultrasonography of Superior Vena Cava, Guidance (ICD-10-PCS; 2018-12-21)
PROC: 5A1D70Z Performance of Urinary Filtration, Intermittent, Less than 6 Hours Per Day (ICD-10-PCS; 2018-12-22)
PROC: 5A1D70Z Performance of Urinary Filtration, Intermittent, Less than 6 Hours Per Day (ICD-10-PCS; 2018-12-23)
PROC: 5A1D70Z Performance of Urinary Filtration, Intermittent, Less than 6 Hours Per Day (ICD-10-PCS; 2018-12-24)
PROC: 0JH63XZ Insertion of Tunneled Vascular Access Device into Chest Subcutaneous Tissue and Fascia, Percutaneous Approach (ICD-10-PCS; 2018-12-26)
PROC: 02PYX3Z Removal of Infusion Device from Great Vessel, External Approach (ICD-10-PCS; 2018-12-26)
PROC: 02HV33Z Insertion of Infusion Device into Superior Vena Cava, Percutaneous Approach (ICD-10-PCS; 2018-12-26)
PROC: B5181ZA Fluoroscopy of Superior Vena Cava using Low Osmolar Contrast, Guidance (ICD-10-PCS; 2018-12-26)
PROC: B548ZZA Ultrasonography of Superior Vena Cava, Guidance (ICD-10-PCS; 2018-12-26)
PROC: 5A1D70Z Performance of Urinary Filtration, Intermittent, Less than 6 Hours Per Day (ICD-10-PCS; 2018-12-27)
PROC: 5A1D70Z Performance of Urinary Filtration, Intermittent, Less than 6 Hours Per Day (ICD-10-PCS; 2018-12-29)
DX: J96.22 Acute and chronic respiratory failure with hypercapnia (principal); N18.6 End stage renal disease; G93.41 Metabolic encephalopathy; I69.354 Hemiplegia and hemiparesis following cerebral infarction affecting left non-dominant side; I31.3 Pericardial effusion (noninflammatory); J90 Pleural effusion, not elsewhere classified; E87.2 Acidosis; E44.0 Moderate protein-calorie malnutrition; J98.11 Atelectasis; N17.9 Acute kidney failure, unspecified; I12.9 Hypertensive chronic kidney disease with stage 1 through stage 4 chronic kidney disease, or unspecified chronic kidney disease; J96.21 Acute and chronic respiratory failure with hypoxia; N28.1 Cyst of kidney, acquired; F20.9 Schizophrenia, unspecified; F31.9 Bipolar disorder, unspecified; D69.6 Thrombocytopenia, unspecified; E11.22 Type 2 diabetes mellitus with diabetic chronic kidney disease; R19.7 Diarrhea, unspecified; J32.0 Chronic maxillary sinusitis; R80.9 Proteinuria, unspecified; F17.210 Nicotine dependence, cigarettes, uncomplicated; E87.5 Hyperkalemia; J44.9 Chronic obstructive pulmonary disease, unspecified; Z79.84 Long term (current) use of oral hypoglycemic drugs; Z88.0 Allergy status to penicillin; Z88.1 Allergy status to other antibiotic agents; Z88.8 Allergy status to other drugs, medicaments and biological substances; Z91.041 Radiographic dye allergy status; Z91.040 Latex allergy status; Z99.2 Dependence on renal dialysis; Z90.49 Acquired absence of other specified parts of digestive tract; Z68.32 Body mass index [BMI] 32.0-32.9, adult
CPT/HCPCS: 10078; 10081; 10203; 32100

== ENCOUNTER 2019-01-09 13:12 | Emergency (ER) | payer OTHER ==
[~2019-01-09] VITALS: Ht 170.2 cm; Wt 118.8 kg
[~2019-01-09 13:12] MED LIST: AFEDITAB CR60 M1 PO; AMLODIPINE BESYL5 M1 PO; BENZTROPINE MES1 MG PO; CARVEDILOL12.5 MG PO; CATAPRES-TTS 20.2 MG TRANSDERM; FLOMAX0.4 MG PO; HUMALOG100 UNIT/1 SUBQ; LANTUS100 UNIT/M SUBQ; LASIX 40 MG TAB40 M2 PO; LUNESTA3 MG PO; PANTOPRAZOLE SO40 M1 PO; RISPERDAL 1 MG T1 MG PO; RISPERDAL4 MG PO; TRAZODONE HCL100 MG PO; TYLENOL325 MG PO
[2019-01-09] MEDS ORDERED: NORCO 5-325 TA1 EAC1 PO (14:10)
[2019-01-09] MEDS ORDERED: ERYTHROMYCIN E3.5 G3 OPHTHALMIC (14:10)
[2019-01-09 16:08] VITALS: BP 160/83
== END 2019-01-09 16:00 | disposition home or self-care (01) ==
LOC: ER 13:12
DX: S05.01XA Injury of conjunctiva and corneal abrasion without foreign body, right eye, initial encounter (principal); E11.22 Type 2 diabetes mellitus with diabetic chronic kidney disease; N18.6 End stage renal disease; J44.9 Chronic obstructive pulmonary disease, unspecified; F31.9 Bipolar disorder, unspecified; Z99.2 Dependence on renal dialysis; Z79.4 Long term (current) use of insulin; Z90.49 Acquired absence of other specified parts of digestive tract; Z79.899 Other long term (current) drug therapy; Z88.8 Allergy status to other drugs, medicaments and biological substances; Z88.0 Allergy status to penicillin; Z91.018 Allergy to other foods; Z91.040 Latex allergy status; Z91.09 Other allergy status, other than to drugs and biological substances; X58.XXXA Exposure to other specified factors, initial encounter; Y93.89 Activity, other specified; Y92.89 Other specified places as the place of occurrence of the external cause; Y99.8 Other external cause status

== ENCOUNTER 2019-04-02 07:45 | Inpatient (IN) | payer OTHER ==
[~2019-04-02] VITALS: Ht 167.6 cm; Wt 87.6 kg
--- NOTE | ~2019-04-02 | HC ---
[facility] [place] [address] CONSULTATION Name: ALLISON VALVERDE Room #: 356-P ADM IN M.R.#: [id number] Admission: 04/02/19 Attend Phys: Lance Doty MD Discharge: Date of : 57 Report #: [id number] THIS REPORT FOR: //name// CC: Lance Doty [facility] Akkulugari DATE OF SERVICE: 04/03/2019 REASON FOR CONSULTATION: End-stage renal disease. REASON FOR PRESENTATION: Not feeling well while in the dialysis unit. HISTORY OF PRESENT ILLNESS: This is a very well-known patient to me. He has an end-stage renal disease. The patient maintained on hemodialysis every Tuesday, Tuesday and Tuesday. He has end-stage renal disease is due to longstanding diabetes mellitus and hypertension. The patient is usually dialyzing every Tuesday, Tuesday and Tuesday. He was in the dialysis unit and started to have some shortness of breath, tachycardia and was sent to the ER to be evaluated. Unfortunately, the patient has history of noncompliance. He went for almost a week without dialysis last week. He was counseled on numerous occasions regarding his medical noncompliance. The patient had fluid overload evident on his presentation. He was admitted to be further evaluated. PAST MEDICAL HISTORY: 1. End-stage renal disease. 2. Diabetes mellitus. 3. Hypertension. 4. Cardiomyopathy with ejection fractions of around 30%. 5. Mild aortic regurgitation. 6. Severe mitral regurgitation. 7. Noncompliance with medical care. 8. History of cerebrovascular accident. 9. Bipolar disorder. 10. History of pancreatitis. 11. Post-cholecystectomy. 12. COPD. SOCIAL HISTORY: He resides in [facility]. MEDICATIONS: 1. Flomax. 2. Insulin. 3. Furosemide. 4. Carvedilol. 5. Risperdal. 6. Trazodone. [facility] [address] [place] [address] CONSULTATION Name: ALLISON VALVERDE Room #: 356-P ADM IN [facility].#: [id number] Admission: 04/02/19 Attend Phys: Lance Doty MD Discharge: Date of : 57 Report #: [id number] FAMILY HISTORY: Significant for diabetes mellitus. ALLERGIES: CONTRAST AND PENICILLIN. REVIEW OF SYSTEMS: GENERAL: Significant for weakness. CARDIOVASCULAR: No chest pain but shortness of breath. PULMONARY: No cough or hemoptysis. Significant for dyspnea on exertion and shortness of breath. GASTROINTESTINAL: No nausea or vomiting. GENITOURINARY: Minimal urine output: PHYSICAL EXAMINATION: GENERAL: The patient is alert, oriented. He was in any apparent distress when I evaluated him this morning. VITAL SIGNS: He was afebrile. Blood pressure was 170/92. HEAD AND NECK: No jugular venous distention. He has a tunneled IJ catheter. CHEST: Crackles present bilaterally. CARDIOVASCULAR: No rub detected. ABDOMEN: Soft, nontender. LOWER EXTREMITIES: Chronic venous stasis with +1 edema. LABORATORY DATA: Reviewed. White blood cell count is 8.6, hemoglobin 13.6. Sodium is 130, potassium 4.7, BUN is 43, and creatinine is 4.5. IMPRESSION AND PLAN: 1. End-stage renal disease. 2. Fluid overload, pulmonary edema. 3. Hypertension. 4. Cardiomyopathy. 5. Cerebrovascular accident. 6. Diabetes mellitus. 7. We will arrange for the patient to have another dialysis treatment today. He was dialyzed appropriately yesterday. 8. We will continue to aggressively do ultrafiltration with hemodialysis to better control his volume. 9. Blood pressure control. 10. Blood sugar control. 11. Discussed with Dr. Caban regarding his cardiac issues and will aim for a stress test in the next 24 hours. By: [id number] Jasen Montgomery MD /nt
[~2019-04-02 07:45] MED LIST changes: +ERYTHROMYCIN E3.5 G3 OPHTHALMIC; +NORCO 5-325 TA1 EAC1 PO
[2019-04-02 07:46] VITALS: BP 187/104
[2019-04-02 08:06] LABS: ABSOLUTE NEUTROPHILS 2.6 thou/uL (1.4-8.2); BASOPHILS 0.9 % (0.0-2.0); EOSINOPHILS 3.2 % (0.0-3.0); HEMATOCRIT 44.2 % (42.0-52.0); HEMOGLOBIN 13.9 gm/dL (14.0-18.0); LYMPHOCYTES 20.1 % (24.0-44.0); MCH 27.2 pg (26.0-34.0); MCHC 31.5 g/dL (28.0-37.0); MCV 86.3 fL (80.0-100.0); PLATELET COUNT 101 thou/uL (150-400); POLYS 67.8 % (36.0-66.0); RBC 5.12 mil/uL (4.50-6.00); RDW 16.5 % (10.5-14.5); WBC 3.8 thou/uL (4.0-11.0)
[2019-04-02 08:14] LABS: ANION GAP 9 mmol/L (7-16); BUN 44 mg/dL (7-18); CHLORIDE 102 mmol/L (98-107); CO2 27 mmol/L (21-32); GLUCOSE 340 mg/dL (74-106); POTASSIUM 4.8 mmol/L (3.5-5.1); SODIUM 138 mmol/L (136-145)
[2019-04-02 08:19] LABS: BE(vivo) -4.6 mmol/L (-2 to +3); HCO3 23.2 mmol/L (22.0-26.0); PCO2 54.3 mmHg (35.0-45.0); PO2 58.4 mmHg (80.0-100.0); sO2 85.5 % (92.0-98.0)
[2019-04-02 08:20] LABS: pH 7.249 (7.360-7.450)
[2019-04-02 08:22] LABS: TROPONIN-I <0.06 ng/mL (<0.06)
--- NOTE | 2019-04-02 08:41 | NUR ---
INPATIENT DIALYSIS NURSE CALLED TO LET ED NURSE KNOW THEY WILL BE ARRIVING IN ABOUT AN HOUR TO DO 5 HOURS OF HD
--- NOTE | 2019-04-02 08:51 | EKG ---
[facility] [place] [address] ELECTROCARDIOGRAM REPORT Name: ALLISON VALVERDE Room #: REG LAURA Clark#: [id number] Admission: 04/02/19 Attend Phys: Discharge: Date of : 57 Report #: [id number] THIS REPORT FOR: //name// [facility] ED Test Date: 2019-04-02 Test Time: 07:52:56 Pat Name: ALLISON VALVERDE Department: Room: Gender: Visor Installer: SONIA : 1955 Requested By: Kam Lam Order Number: [id number] MD: Quentin Lance Measurements Intervals Jbphh Rate: 106 P: 267 SD: 150 QRS: -64 QRSD: 117 T: 212 QT: 369 QTc: 490 Interpretive Statements Sinus tachycardia LVH with IVCD, LAD and secondary repol abnrm Left anterior hemiblock Prolonged QT interval no previous ECGs available for comparison Electronically Signed On 04-02-2019 8:51:10 CDT by Quentin Lance [email or web address] <ELECTRONICALLY SIGNED> By: Quentin Lance MD, [facility] 04/02/19 [id number] Quentin Lance MD, FACC /EPI
[2019-04-02 09:10] VITALS: BP 155/94
[2019-04-02 09:20] VITALS: BP 169/88
[2019-04-02 10:00] VITALS: BP 170/98
[2019-04-02 10:01] LABS: BE(vivo) -3.8 mmol/L (-2 to +3); HCO3 23.8 mmol/L (22.0-26.0); PCO2 53.6 mmHg (35.0-45.0); PO2 75.5 mmHg (80.0-100.0)
[2019-04-02 10:02] LABS: pH 7.265 (7.360-7.450)
[2019-04-02] MEDS ORDERED: B COMPLEX-FOLI1 EACH PO (13:12)
[2019-04-02] MEDS ORDERED: HUMALOG100 UNIT/1 SUBQ (13:13)
--- NOTE | 2019-04-02 13:37 | 2DMMODE ---
[facility] [address] [place] [address] 2 D/M-MODE ECHOCARDIOGRAM Name: ALLISON VALVERDE Room #: 356-P ADM IN .R.#: [id number] Admission: 04/02/19 Attend Phys: Lance Doty, Discharge: Date of : 57 Report #: [id number] THIS REPORT FOR: //name// APPROVED REPORT Study performed: 04/02/2019 13:04:29 EXAM: Limited 2D, Doppler, and color-flow Echocardiogram Patient Location: Bedside Room #: 356 Status: routine BSA: 2.00 HR: 86 bpm BP: 170/98 mmHg Other Information Study Quality: Adequate Technically limited study due to patient on dialysis, BiPAP.. Indications Abnormal ECG Congestive Heart Failure Dyspnea Hx: COPD, CVA, PE, DM, HTN, HLP. 2D Dimensions IVSd: 14.00 (7-11mm) LVDd: 50.00 mm PWd: 14.00 (7-11mm) LVDs: 41.36 (25-40mm) Aortic Valve AoV Peak Jose Enrique.: 0.89 m/s AO Peak Gr.: 3.15 mmHg Tricuspid Valve RAP Estimate: 5.00 mmHg Left Ventricle The left ventricle is normal size. Mild to moderate concentric left ventricular hypertrophy. Left ventricular systolic function is moderately decreased. LVEF is 30-35%. This study is not technically sufficient to allow evaluation of the LV diastolic function. Right Ventricle [facility] [address] [place] [address] 2 D/M-MODE ECHOCARDIOGRAM Name: ALLISON AVLVERDE Room #: 356-P ADM IN M.R.#: [id number] Admission: 04/02/19 Attend Phys: Lance Doty, Discharge: Date of : 57 Report #: [id number] The right ventricle is normal size. The right ventricular systolic function is normal. Atria The left atrium size is normal. The right atrium size is normal. Aortic Valve The aortic valve is normal in structure. Mild aortic regurgitation. There is no aortic valvular stenosis. Mitral Valve The mitral valve is normal in structure. Severe mitral regurgitation. Eccentric jet. Tricuspid Valve The tricuspid valve is normal in structure. There is no tricuspid valve regurgitation noted. Unable to assess PA pressure. Great Vessels IVC is normal in size and collapses >50% with inspiration. Pericardium Small pericardial effusion. <Conclusion> The left ventricle is normal size. LVEF is 30-35%. The aortic valve is normal in structure. Mild aortic regurgitation. The mitral valve is normal in structure. Severe mitral regurgitation. Eccentric jet. The tricuspid valve is normal in structure. There is no tricuspid valve regurgitation noted. Unable to assess PA pressure. Small pericardial effusion. <ELECTRONICALLY SIGNED> By: Jatinder Saeed MD 04/02/191336 36 36 Jatinder Saeed MD /INF
[2019-04-02 14:21] LABS: BE(vivo) -1.8 mmol/L (-2 to +3); HCO3 23.5 mmol/L (22.0-26.0); PCO2 42.1 mmHg (35.0-45.0); PO2 71.3 mmHg (80.0-100.0); pH 7.365 (7.360-7.450); sO2 93.9 % (92.0-98.0)
[2019-04-02 16:38] VITALS: BP 169/102
[2019-04-02 19:37] VITALS: BP 178/97
--- NOTE | 2019-04-02 19:47 | NUR ---
Patient brought to [address] [place] [address] from ER approx. 0930 this AM. Patient placed on telemetry and IV abx finished infusing. Consents signed upon arrival. ABG pH still critically low at 7.2 when redrawn on the unit. Patient placed on bipap. Patient's DPOA/ sister Meredith notified of patient's arrival to the hospital per request from the patient. Patient later refused bipap after about 3 hours of wearing it as he said he wants a meal. ABG redrawn with no critical values. Patient has had no more complaints of SOA. Diet ordered by DYLAN Gomez. Patient refusing heart cath tomorrow and won't sign consent. Patient on 2LNC at time of shift supervisor film processing arrival. Patient slowly progressing toward goals.
[2019-04-03 00:05] VITALS: BP 150/74
[2019-04-03 00:06] LABS: GLYCOHEMOGLOBIN (HGB A1C) 8.6 % (4.8-5.6)
--- NOTE | 2019-04-03 02:20 | NUR ---
ASSUMED CARE OF PATIENT AT 1900. BP SLIGHTLY ELEVATED, BUT DOWN ON RECHECK. DENIES PAIN, NO OTHER S/S OF DISTRESS. WEARING O2 THROUGH THE NIGHT. ON CONTINUOUS PULSE OX. NPO AFTER MIDNIGHT FOR STRESS TEST. WORKING TOWARDS POC GOALS.
[2019-04-03 03:34] VITALS: BP 178/99
[2019-04-03 05:53] LABS: BASOPHILS 0.1 % (0.0-2.0); HEMATOCRIT 42.6 % (42.0-52.0); HEMOGLOBIN 13.6 gm/dL (14.0-18.0); LYMPHOCYTES 5.6 % (24.0-44.0); MCH 27.1 pg (26.0-34.0); MCV 84.8 fL (80.0-100.0); MONOCYTES 1.8 % (1.0-8.0); PLATELET COUNT 104 thou/uL (150-400); POLYS 92.5 % (36.0-66.0); RBC 5.02 mil/uL (4.50-6.00); RDW 16.7 % (10.5-14.5); WBC 8.6 thou/uL (4.0-11.0)
[2019-04-03 06:09] LABS: ALBUMIN 2.6 g/dL (3.4-5.0); ANION GAP 9 mmol/L (7-16); BUN 43 mg/dL (7-18); CALCIUM 9.2 mg/dL (8.5-10.1); CHLORIDE 96 mmol/L (98-107); CO2 25 mmol/L (21-32); CREATININE 4.5 mg/dL (0.7-1.3); GLUCOSE 191 mg/dL (74-106); MAGNESIUM 1.7 mg/dL (1.8-2.4); PHOSPHORUS 4.3 mg/dL (2.5-4.9); POTASSIUM 4.7 mmol/L (3.5-5.1)
[2019-04-03 06:10] LABS: SODIUM 130 mmol/L (136-145)
[2019-04-03 06:22] LABS: CHOLESTEROL 161 mg/dL (<200); HDL CHOLESTEROL 66 mg/dL (>40); LDL CHOLESTEROL 86 mg/dL (<100); TC:HDL 2.4 Ratio (Not establshd); TRIGLYCERIDE 45 mg/dL (<150); VLDL 9 mg/dL (<40)
[2019-04-03 06:28] LABS: SERUM ASSESSMENT Clear
--- NOTE | 2019-04-03 06:54 | HC ---
[facility] [place] [address] CONSULTATION Name: ALLISON VALVERDE Room #: 356-P ADM IN M.R.#: [id number] Admission: 04/02/19 Attend Phys: Lance Doty MD Discharge: Date of : 57 Report #: [id number] THIS REPORT FOR: //name// CC: Lance Doty [facility] Akkulugari DATE OF SERVICE: 04/02/2019 CONSULTING PHYSICIAN: Dr. Doty. REASON FOR CONSULTATION: Uncontrolled type 2 diabetes mellitus. HISTORY OF PRESENT ILLNESS: This is a 63-year-old male patient whose medical background is significant for multiple medical issues including longstanding type 2 diabetes mellitus, end-stage renal disease requiring hemodialysis, hypertension, and CVA. The patient notes that his diabetes history dates back to about 40 years ago and indicates that he is currently on a regimen of Lantus insulin 40 units q.p.m. When asked about blood glucose control on this regimen, he noted that his blood glucose values fluctuate widely and occasionally in the low 100s and 90s, but could sometimes be as high as 300 mg/dL with occurrences of hypoglycemia as well. The patient has end-stage renal disease likely due to diabetic nephropathy requiring hemodialysis 3 times a week. Also, he has a history of CVA in the past, but not heart disease. The patient presented to the ER today from his assisted living facility with complaints of shortness of breath that seemed to start suddenly after dialysis today and he noted the occurrence of worsening cough as well. REVIEW OF SYSTEMS: CONSTITUTIONAL: Fatigue, tiredness, but not fever, chills or changes in body weight. PULMONARY: Shortness of breath, cough, but no hemoptysis. CARDIAC: No chest pain, but lightheadedness, presyncope, and palpitations. ABDOMINAL AND GASTROINTESTINAL: Abdominal discomfort and intermittent nausea, but no vomiting. No major changes in bowel movement frequency. NEUROLOGY: Lightheadedness, dizziness, but not seizures or loss of consciousness. MUSCULOSKELETAL: Occasional issues with generalized nonspecific myalgia or arthralgia. SKIN: Negative for discoloration rash or itching. PSYCHIATRIC: Negative for hallucinations, severe mood swings. Otherwise, his review of systems noncontributory other than those mentioned in HPI. [address] [address] CONSULTATION Name: ALLISON VALVERDE Room #: 356-P ADM IN M.R.#: [id number] Admission: 04/02/19 Attend Phys: Lance Doty MD Discharge: Date of : 57 Report #: [id number] PAST MEDICAL HISTORY: 1. Type 2 diabetes mellitus. 2. Cerebrovascular accident. 3. End-stage renal disease that required hemodialysis 3 times a week. 4. Bipolar disorder. 5. History of pancreatitis. 6. Hypertension. 7. Possible LA in the past. ALLERGIES: PROLIXIN, PENICILLINS, BENADRYL, HALDOL, BANANAS, THORAZINE, IODINE DYE, LATEX, MELLARIL reported. ACTIVE MEDICATIONS: Include: 1. Risperdal 1 mg daily. 2. Lantus insulin 40 units q.p.m. 3. Flomax 0.4 mg daily. 4. Lasix 40 mg daily. 5. Coreg 12.5 mg b.i.d. 6. Tylenol p.r.n. 7. Cogentin 1 mg daily. 8. Lunesta 3 mg at bedtime. 9. Risperdal 4 mg at bedtime. 10. Trazodone 100 mg at bedtime. FAMILY HISTORY: Noncontributory. SOCIAL HISTORY: The patient smokes about half a pack per day. Lives at an assisted living facility. Denies use of alcohol. PHYSICAL EXAMINATION: GENERAL: Pleasant -Nepalese male patient who is lying down in bed, somewhat somnolent, but appears comfortable, not in apparent distress. He wears BiPAP mask. VITAL SIGNS: Blood pressure is 170/98 mmHg, heart rate is 80 beats per minute, respirations 14 per minute, temperature 36.9 degrees. CONSTITUTIONAL: He appears comfortable, lying in bed, seems a bit somnolent, wears a BiPAP mask, not in apparent distress. HEENT: Anicteric sclerae. Intact extraocular motions. NECK: Supple, without JVD, carotid bruits or lymphadenopathy. I do not appreciate thyromegaly. CHEST: Noted for limited air entry bilaterally with scattered rales and rhonchi, but no wheezes or crackles. HEART: Regular rate and rhythm without murmurs or gallops. ABDOMEN: A bit distended, not tense, soft, nontender, no guarding. Active bowel sounds. EXTREMITIES: Lower extremity exam, +1 ankle edema bilaterally. Faint pedal [facility] [address] [place] [address] CONSULTATION Name: ALLISON VALVERDE Room #: 356-P [facility] IN M.R.#: [id number] Admission: 04/02/19 Attend Phys: Lance Doty MD Discharge: Date of : 57 Report #: [id number] pulses. No skin breaks, ulcerations, or other deformities. NEUROLOGIC: Somnolent, but arousable grossly nonfocal. PSYCHIATRIC: Normal mood and affect, appropriate, interactive. SKIN: No major ulceration, discoloration or other abnormalities noted. LABORATORY DATA: The patient had a single blood glucose recorded since arrival; it was 185 mg/dL. Otherwise, sodium 138, potassium 4.8, chloride 102, CO2 of 27, anion gap 9, BUN 44, creatinine 5.0, glucose 340 by blood drawn on arrival, AST 20, lipase 76. Total bilirubin 0.2, calcium 9.0, phosphorus 4.8, magnesium 1.8, alkaline phosphatase 78, ALT 28, total protein 4.9, albumin 1.8. GFR 14. Ammonia 24. BNP 12,639, white blood count 3.8, hemoglobin 13.9, hematocrit 44.2, platelets 101. TSH 2.178. Hemoglobin A1c is ordered and is pending. ASSESSMENT AND PLAN: 1. Type 2 diabetes mellitus, uncontrolled. The patient has historically uncontrolled type 2 diabetes mellitus as indicated by his blood glucose reports as well as the occurrence of end-stage complications including end-stage renal disease. We do not have much insight in terms of the patient's daily blood glucose values since he had just been admitted to the hospital, but his history is suggestive of widely fluctuating blood glucose values. His regimen of Lantus insulin 14 units q.p.m. strongly suggest that he is over basalized with a high basal dose and no prandial coverage. That said, I will look to adjust this towards more prandial coverage. I will first off start with reducing his Lantus to 25 units q.p.m. and introducing Tradjenta 5 mg daily and advancing his Humalog supplemental scale coverage to moderate intensity. Blood glucose monitoring will be commence a.c. and at bedtime and these values will be utilized to figure his specific insulin. He is going forward. 2. Hypertension. The patient has an uncontrolled blood pressure at this point in time, I will defer to the Hospital Medicine and Nephrology team for this issue. 3. End-stage renal disease. The patient was actually undergoing hemodialysis when I interviewed him, Nephrology team is monitoring closely. I certainly appreciate this consultation by Dr. Doty. <ELECTRONICALLY SIGNED> By: Guido Castro MD 04/03/19 0654 1220 2326 Guido Castro MD /nt
[2019-04-03 08:10] VITALS: BP 172/90
--- NOTE | 2019-04-03 13:46 | NUR ---
category planner sent updates to [facility], patient may be ready for discharge tomorrow, paola let Becca know.
--- NOTE | 2019-04-03 15:24 | NUR ---
Assumed care approx. 0700 this AM. Patient recieved dialysis this AM-dialysis nurse reported 3L off. Patient much more alert and awake today. No complaints of SOA, no signs of distress. Patient blood sugars have been high, but treated with ordered sliding scale. No tachycardia noted to be a problem today. Patient expected to be discharged tomorrow. Patient progressing toward plan of care goals.
--- NOTE | 2019-04-03 15:43 | NUR ---
INITIAL ASSESSMENT: Pt evaluated for d/c planning needs. Reviewed chart and spoke with nurse, pt and pt's sister Meredith ([phone]). Pt is a fci care resident at [facility] since December 2018. Pt has dialysis first shift M-W- at [facility]. Pt was d/c from [facility] after his pulled his dialysis catheter during dialysis. Pt is normally in a w/c at facility. Plan is for pt to return to [facility] on d/c from hospital. Asked financial planner to send referral to facility. Will remain available to assist as needed.
[2019-04-03 16:43] VITALS: BP 161/90
[2019-04-03 19:22] VITALS: BP 169/87
[2019-04-04 04:02] VITALS: BP 151/92
--- NOTE | 2019-04-04 04:54 | NUR ---
PATIENT IS PROGRESSING IN HIS CARE PLAN. VITAL SIGNS STABLE WITH PATIENT HAVING NO COMPLAINTS OF PAIN OR NAUSEA. PATIENT SUCCESSFULLY TITRATED OFF OXYGEN WITH NO PROBLEMS BREATHING EVIDENCED BY ASSESSMENT AND SPOT OXYGENATION CHECKS. PATIENT ANXIOUS TO DIALYZE AND DISCHARGE HOME TODAY. CONTINUE PLAN OF CARE.
--- NOTE | 2019-04-04 07:48 | EKG ---
[address] [place] [address] ELECTROCARDIOGRAM REPORT Name: ALLISON VALVERDE Room #: 356-P ADM IN M.R.#: [id number] Admission: 04/02/19 Attend Phys: Lance Doty MD Discharge: Date of : 57 Report #: [id number] THIS REPORT FOR: //name// [facility] ED Test Date: 2019-04-02 Test Time: 09:03:14 Pat Name: ALLISON VALVERDE Department: Room: 356 Gender: M Machine Molder Squeeze: carlito : 1955 Requested By: Kam Lam Order Number: [id number] MD: Goran Calero Measurements Intervals [place] Rate: 76 P: 27 ND: 202 QRS: -59 QRSD: 121 T: 263 QT: 422 QTc: 475 Interpretive Statements Sinus rhythm Probable left atrial enlargement Nonspecific IVCD with LAD Left ventricular hypertrophy Abnormal T, consider ischemia, diffuse leads Compared to ECG 04/02/2019 07:52:56 Electronically Signed On 04-04-2019 7:47:46 CDT by Goran Calero [email or web address] <ELECTRONICALLY SIGNED> By: Goran Calero MD 04/04/19 0747 2 2 Goran Calero MD /EPI
[2019-04-04 08:00] VITALS: BP 152/94
--- NOTE | 2019-04-04 11:55 | NUR ---
dialysis completed today and 2.5 liter fluid removed. will be discharged back to facilty this afternoon.
[2019-04-04 12:05] VITALS: BP 152/94
--- NOTE | 2019-04-04 13:19 | NUR ---
DISCHARGE ORDERS COMPLETED. PATIENT DISCHARGING TO [facility]. CHART COPY COMPLETED PER MANAGER CHEMICAL. ORDERS FAXED TO [facility] ADMISSIONS LIAISON. TRANSPORTATION ARRANGED PER [facility], 1600 HOURS. PATIENT HAS HIS OWN WHEELCHAIR AT BEDSIDE, KERRI AWARE. UNIT NOTIFIED OF DISCHARGE TIME. CONTACT NUMBER FOR REPORT PROVIDED.
--- NOTE | 2019-04-04 14:08 | NUR ---
DISCHARGE NOTE: SW reviewed chart and spoke with nursing and attending physician. Pt is medically stable for discharge back to Centers today after dialysis. Pt to resume his regular outpatient dialysis at [facility] on Tuesday. financial planner coordinated and notified family. Chart copy requested. No additional SW needs identified at this time, but is available to assist should needs arise.
--- NOTE | 2019-04-04 16:26 | NUR ---
DISCHARGED BACK TO [facility]. ATTEMPTED TO CALL REPORT TWICE BUT UNABLE TO CONNECT WITH NURSE. TRANSPORTED IN HIS WHEELCHAIR IN STABLE CONDITION. LFA PIV REMOVED AND DRESSING APPLIED.
== END 2019-04-04 16:27 | DRG 291 ==
LOC: ER 07:45 → EROBS 09:08 → 3W 09:20
PROVIDERS: Emergency Medicine; Nurse Practitioner; ADMIT Internal Medicine
DX: I13.2 Hypertensive heart and chronic kidney disease with heart failure and with stage 5 chronic kidney disease, or end stage renal disease (principal); I50.33 Acute on chronic diastolic (congestive) heart failure; J96.21 Acute and chronic respiratory failure with hypoxia; J96.22 Acute and chronic respiratory failure with hypercapnia; N18.6 End stage renal disease; J44.1 Chronic obstructive pulmonary disease with (acute) exacerbation; J98.11 Atelectasis; I16.1 Hypertensive emergency; E11.22 Type 2 diabetes mellitus with diabetic chronic kidney disease; I42.9 Cardiomyopathy, unspecified; F31.9 Bipolar disorder, unspecified; F17.210 Nicotine dependence, cigarettes, uncomplicated; D69.6 Thrombocytopenia, unspecified; I27.20 Pulmonary hypertension, unspecified; I34.0 Nonrheumatic mitral (valve) insufficiency; E11.65 Type 2 diabetes mellitus with hyperglycemia; E78.5 Hyperlipidemia, unspecified; I25.10 Atherosclerotic heart disease of native coronary artery without angina pectoris; R94.31 Abnormal electrocardiogram [ECG] [EKG]; I25.2 Old myocardial infarction; Z90.49 Acquired absence of other specified parts of digestive tract; Z79.899 Other long term (current) drug therapy; Z71.6 Tobacco abuse counseling; Z79.4 Long term (current) use of insulin; Z88.8 Allergy status to other drugs, medicaments and biological substances; Z88.0 Allergy status to penicillin; Z91.040 Latex allergy status; Z99.2 Dependence on renal dialysis; Z86.73 Personal history of transient ischemic attack (TIA), and cerebral infarction without residual deficits; Z91.19 Patient's noncompliance with other medical treatment and regimen; Z83.3 Family history of diabetes mellitus
CPT/HCPCS: 10879; 32100

== ENCOUNTER 2019-06-04 02:17 | Inpatient (IN) | payer OTHER ==
[2019-06-04] VITALS (83 sets, daily range): BP systolic 112–184; BP diastolic 62–92
[~2019-06-04] VITALS: Ht 182.9 cm; Wt 84.6 kg
[~2019-06-04 02:17] MED LIST changes: +B COMPLEX-FOLI1 EACH PO
[2019-06-04 03:02] LABS: BE(vivo) -13.6 mmol/L (-2 to +3); HCO3 18.8 mmol/L (22.0-26.0); PO2 307.9 mmHg (80.0-100.0); sO2 99.4 % (92.0-98.0)
[2019-06-04 03:04] LABS: PCO2 79.9 mmHg (35.0-45.0)
[2019-06-04 03:12] LABS: ABSOLUTE NEUTROPHILS 8.4 thou/uL (1.4-8.2); BASOPHILS 0.9 % (0.0-2.0); EOSINOPHILS 0.2 % (0.0-3.0); HEMATOCRIT 38.6 % (42.0-52.0); HEMOGLOBIN 11.8 gm/dL (14.0-18.0); LYMPHOCYTES 13.3 % (24.0-44.0); MCH 28.5 pg (26.0-34.0); MCHC 30.6 g/dL (28.0-37.0); MCV 92.9 fL (80.0-100.0); MONOCYTES 7.2 % (1.0-8.0); PLATELET COUNT 139 thou/uL (150-400); POLYS 78.4 % (36.0-66.0); RBC 4.15 mil/uL (4.50-6.00); RDW 19.2 % (10.5-14.5); WBC 10.7 thou/uL (4.0-11.0)
[2019-06-04 03:34] LABS: ALBUMIN 2.2 g/dL (3.4-5.0); ANION GAP 15 mmol/L (7-16); BUN 90 mg/dL (7-18); CALCIUM 9.4 mg/dL (8.5-10.1); CHLORIDE 90 mmol/L (98-107); CO2 19 mmol/L (21-32); CREATININE 8.5 mg/dL (0.7-1.3); DIRECT BILIRUBIN 0.1 mg/dL (<0.1-0.3); GLUCOSE 410 mg/dL (74-106); SGOT 22 U/L (15-37); SGPT 19 U/L (30-65); SODIUM 124 mmol/L (136-145); TOTAL BILIRUBIN 0.3 mg/dL (<0.1-1.0); TOTAL PROTEIN 5.9 g/dL (6.4-8.2); TROPONIN-I <0.06 ng/mL (<0.06)
[2019-06-04 03:35] LABS: POTASSIUM 6.7 mmol/L (3.5-5.1)
[2019-06-04 04:34] LABS: ANISOCYTOSIS 2+; POLYCHROMASIA 1+
[2019-06-04] MEDS ORDERED: RENAL-VITE TAB0.8 MG PO (04:49)
[2019-06-04 05:39] LABS: BE(vivo) -10.4 mmol/L (-2 to +3); HCO3 19.6 mmol/L (22.0-26.0); PCO2 63.4 mmHg (35.0-45.0); PO2 65.6 mmHg (80.0-100.0); sO2 84.7 % (92.0-98.0)
[2019-06-04 05:43] LABS: pH 7.109 (7.360-7.450)
--- NOTE | 2019-06-04 06:40 | NUR ---
63 Y/O PT OF DR FLANNERY ADMITTED TO ICU VIA CART FROM ER POST CODE. OPENS EYES FOLLOWS NO COMMANDS ORALLY INTUBATED. SINUS RHYTHM NO PAVEL. DR PAIZ HERE. LEFT ORDERS TO MAKE A DNR AND COMFORT CARE. FAMILY COMING IN DR CRAWFORD CONSULTED. NO IV GTTS INFUSING. WILL CONT TO MONITOR.
[2019-06-04 06:50] LABS: CALCIUM 9.5 mg/dL (8.5-10.1); CREATININE 8.6 mg/dL (0.7-1.3); POTASSIUM 6.1 mmol/L (3.5-5.1)
--- NOTE | 2019-06-04 08:09 | EKG ---
[place] [address] [employer] [facility] [place] [address] ELECTROCARDIOGRAM REPORT Name: ALLISON VALVERDE Room #: 236-P ADM IN M.R.#: [id number] Admission: 06/04/19 Attend Phys: Karoline Borrego MD Discharge: Date of : 57 Report #: [id number] THIS REPORT FOR: //name// [facility] ED Test Date: 2019-06-04 Test Time: 04:30:00 Pat Name: ALLISON VALVERDE Department: Room: 236 Gender: M Creative Technologist: CHEMA : 1955 Requested By: Cinda Esquivel Order Number: [id number] MD: Quentin Lance Measurements Intervals [place] Rate: 67 P: 31 ID: 192 QRS: -60 QRSD: 126 T: -5 QT: 444 QTc: 469 Interpretive Statements Sinus rhythm Nonspecific IVCD with LAHB no previous ECGs available for comparison Electronically Signed On 06-04-2019 8:09:28 NEW CAR INSPECTOR by Quentin Lance [email or web address] <ELECTRONICALLY SIGNED> By: Quentin Lance MD, [facility] 06/04/19 0809 0430 0430 Quentin Lance MD, FACC /EPI
[2019-06-04 11:39] LABS: BE(vivo) -6.9 mmol/L (-2 to +3); HCO3 20.8 mmol/L (22.0-26.0); PCO2 50.6 mmHg (35.0-45.0); PO2 108.1 mmHg (80.0-100.0)
[2019-06-04 11:40] LABS: pH 7.231 (7.360-7.450)
[2019-06-04 12:06] LABS: ABSOLUTE NEUTROPHILS 9.8 thou/uL (1.4-8.2); BASOPHILS 0.3 % (0.0-2.0); HEMATOCRIT 39.5 % (42.0-52.0); HEMOGLOBIN 12.4 gm/dL (14.0-18.0); LYMPHOCYTES 2.1 % (24.0-44.0); MCH 28.1 pg (26.0-34.0); MCHC 31.4 g/dL (28.0-37.0); MCV 89.6 fL (80.0-100.0); MONOCYTES 4.9 % (1.0-8.0); PLATELET COUNT 112 thou/uL (150-400); POLYS 92.7 % (36.0-66.0); RBC 4.41 mil/uL (4.50-6.00); RDW 18.5 % (10.5-14.5); WBC 10.5 thou/uL (4.0-11.0)
[2019-06-04 12:24] LABS: FIBRINOGEN 394.1 mg/dL (210-360)
[2019-06-04 12:32] LABS: CALCIUM 9.1 mg/dL (8.5-10.1); CREATININE 8.6 mg/dL (0.7-1.3); D-DIMER 17.25 ug/mLFEU (0.19-0.50); MAGNESIUM 2.2 mg/dL (1.8-2.4); TROPONIN-I 0.07 ng/mL (<0.06)
[2019-06-04 12:42] LABS: POTASSIUM 6.2 mmol/L (3.5-5.1)
[2019-06-04 14:22] LABS: BE(vivo) -2.4 mmol/L (-2 to +3); HCO3 23.2 mmol/L (22.0-26.0); PO2 145.8 mmHg (80.0-100.0); pH 7.349 (7.360-7.450); sO2 98.8 % (92.0-98.0)
--- NOTE | 2019-06-04 17:41 | NUR ---
VASCULAR ACCESS CONSULTED FOR CVAD. PT'S LABS,MEDS,HISTORY ORDER AND CONSENT VERIFIED. RIJ WAS WIDELY PATENT WITH USG. 6FR TL 25CM JACC INSERTED TO 8CM EXTERNAL. STAT CXR ORDERED. BLEEDING AT SITE, GAUZE AND PRESSURE APPLIED.
[2019-06-04 18:05] LABS: BE(vivo) -4.4 mmol/L (-2 to +3); HCO3 23.1 mmol/L (22.0-26.0); PCO2 52.4 mmHg (35.0-45.0); PO2 68.5 mmHg (80.0-100.0); sO2 90.9 % (92.0-98.0)
[2019-06-04 18:06] LABS: pH 7.262 (7.360-7.450)
--- NOTE | 2019-06-04 18:41 | NUR ---
central line placement confirmed, released for immediate use per protocol to silva awlsh
[2019-06-04 18:59] LABS: BASOPHILS 0.1 % (0.0-2.0); EOSINOPHILS 0.3 % (0.0-3.0); HEMATOCRIT 41.3 % (42.0-52.0); HEMOGLOBIN 13.3 gm/dL (14.0-18.0); LYMPHOCYTES 2.8 % (24.0-44.0); MCH 28.3 pg (26.0-34.0); MCHC 32.3 g/dL (28.0-37.0); MCV 87.5 fL (80.0-100.0); MONOCYTES 4.8 % (1.0-8.0); RBC 4.72 mil/uL (4.50-6.00); RDW 18.7 % (10.5-14.5); WBC 7.6 thou/uL (4.0-11.0)
[2019-06-04 19:18] LABS: ANION GAP 13 mmol/L (7-16); BUN 41 mg/dL (7-18); CALCIUM 9.1 mg/dL (8.5-10.1); CHLORIDE 95 mmol/L (98-107); CO2 26 mmol/L (21-32); GLUCOSE 207 mg/dL (74-106); MAGNESIUM 1.8 mg/dL (1.8-2.4); SODIUM 134 mmol/L (136-145); TROPONIN-I <0.06 ng/mL (<0.06)
[2019-06-04 19:19] LABS: CREATININE 4.2 mg/dL (0.7-1.3); POTASSIUM 3.5 mmol/L (3.5-5.1)
[2019-06-04 19:25] LABS: ANISOCYTOSIS 1+; PLATELET COUNT 92 thou/uL (150-400)
--- NOTE | 2019-06-04 20:12 | NUR ---
DR. MCCORMICK ORDERED FOR PALLIATIVE CARE THIS MORNING. WHEN FAMILY ARRIVED, RN CALLED DR. MCCORMICK TO SPEAK WITH THEM, HE HAD WAITED THIS MORNING FOR THEM, HOWEVER HE HAD TO LEAVE. AFTER PHYSICIAN SPOKE WITH FAMILY, HE REQUESTED TO SPEAK WITH RN. RN TALKED WITH HIM AND RECIEVED ORDERS THAT WE ARE GOING TO REVERSE HIS DNR STATUS AND THAT HE WAS NOW A FULL CODE. DR. RONQUILLO ROUNDED, DR. DASILVA ROUNDED. ORDERS RECEIVED TO START HYPOTHERMIA PROTOCOL. NURSE EXPRESSED HIS CODE WAS OUTSIDE THE 4-6 HOUR WINDOW. IT WAS EXPRESSED THAT HE IS A FULL CODE AND WE WILL CONTINUE WITH IT. PATIENT NEURO STATUS AT THAT TIME WAS DOCUMENTED. HYPOTHERMIA STARTED AT 1215. GOAL TEMPERATURE OF 33. DEGREE C WAS REACHED AT 1710. THIS WAS DOCUMENTED. PATIENT WAS HYPERTENSIVE, NURSE NOTIFIED DR. MCCORMICK AND UPDATED HIM ON PATIENT STATUS. THIS INCLUDING THE COPIOUS AMOUNTS OF WHITE FROTHY SECRETIONS FROM HIS ET TUBE. HE EXPRESSED WE WILL CONTINUE TO MONITOR PATIENT STATUS AND ORDERED MEDICATIONS FOR HIS BLOOD PRESSURE. THEN DR. RONQUILLO WAS NOTIFIED OF ABG RESULT AND UPDATED ON PULMONARY STATUS WELL HYPOTHERMIA STATUS. DR. RONQUILLO THEN ROUNDED ON PATIENT AND EVALUATED HIS SECRETIONS. ORDERS RECEIVED FOR INCREASE OF PEEP WRITTEN. RT WAS NOTIFIED OF THE INCREASE OF PEEP INCREMENTS. LABS NOTED. DR. MCCORMICK UPDATED THROUGHOUT THE DAY WELL DR. RONQUILLO. NEUROLOGY ROUNDED AND ORDERS RECEIVED. URINE OUTPUT WELL GASTRIC OUTPUT WAS NOTED TO RENAL PHYSICIAN. PATIENT PLAN OF CARE GOALS IS TO MAINTAIN HEMODYNAMICS, INCLUDING RESPIRATORY OXYGENATION/STATUS, IMPROVE NEURO STATUS, CONTINUE HYPOTHERMIA PROTOCOL.
[2019-06-05] VITALS (57 sets, daily range): BP systolic 72–161; BP diastolic 47–81
[2019-06-05 00:13] LABS: HEMATOCRIT 42.4 % (42.0-52.0); HEMOGLOBIN 13.6 gm/dL (14.0-18.0); LYMPHOCYTES 2.3 % (24.0-44.0); MCHC 32.1 g/dL (28.0-37.0); MONOCYTES 5.4 % (1.0-8.0); RDW 18.8 % (10.5-14.5)
[2019-06-05 00:14] LABS: ABSOLUTE NEUTROPHILS 7.8 thou/uL (1.4-8.2); BASOPHILS 0.1 % (0.0-2.0); MCH 28.4 pg (26.0-34.0); MCV 88.5 fL (80.0-100.0); PLATELET COUNT 93 thou/uL (150-400); POLYS 92.2 % (36.0-66.0); RBC 4.79 mil/uL (4.50-6.00); WBC 8.4 thou/uL (4.0-11.0)
[2019-06-05 00:39] LABS: ALBUMIN 2.4 g/dL (3.4-5.0); CALCIUM 8.6 mg/dL (8.5-10.1); CREATININE 4.7 mg/dL (0.7-1.3); MAGNESIUM 1.7 mg/dL (1.8-2.4); PHOSPHORUS 5.8 mg/dL (2.5-4.9); POTASSIUM 3.3 mmol/L (3.5-5.1); TROPONIN-I 0.06 ng/mL (<0.06)
--- NOTE | 2019-06-05 04:51 | NUR ---
NO OVERNIGHT EVENTS. HYPOTHERMIA PROTOCOL MAINTAINED. PT. HAD INCREASED SHIVERING THROUGHOUT NIGHT. PARALYTIC AGENT USED, WHEN PT. CONTINUED TO SHIVER FENTANYL WAS GIVEN PER PROTOCOL, FENTANYL GTT TO BE INITIATED PER PROTOCOL. INSULIN GTT INITIATED PER PROTOCOL. PT. REMAINS TO HAVE COPIOUS AMOUNTS OF FROTHY SECRETIONS. VSS. ASSESSMENTS AND VITAL SIGNS CHARTED. MEDICATION TITRATION CHARTED. CONTINUE TO FOLLOW POC. PT. WILL START REWARMING AT 1710 TODAY. WILL CONTINUE TO MONITOR.
[2019-06-05 05:21] LABS: HCO3 25.3 mmol/L (22.0-26.0); PCO2 53.6 mmHg (35.0-45.0); PO2 61.2 mmHg (80.0-100.0); sO2 88.5 % (92.0-98.0)
[2019-06-05 05:22] LABS: pH 7.292 (7.360-7.450)
[2019-06-05 06:06] LABS: ABSOLUTE NEUTROPHILS 8.2 thou/uL (1.4-8.2); BASOPHILS 0.1 % (0.0-2.0); HEMATOCRIT 41.6 % (42.0-52.0); HEMOGLOBIN 13.2 gm/dL (14.0-18.0); LYMPHOCYTES 2.8 % (24.0-44.0); MCHC 31.7 g/dL (28.0-37.0); MCV 88.2 fL (80.0-100.0); MONOCYTES 4.8 % (1.0-8.0); PLATELET COUNT 98 thou/uL (150-400); POLYS 92.3 % (36.0-66.0); RBC 4.71 mil/uL (4.50-6.00); WBC 8.9 thou/uL (4.0-11.0)
[2019-06-05 06:27] LABS: ANION GAP 12 mmol/L (7-16); BUN 53 mg/dL (7-18); CHLORIDE 95 mmol/L (98-107); CO2 26 mmol/L (21-32); CREATININE 5.3 mg/dL (0.7-1.3); GLUCOSE 189 mg/dL (74-106); MAGNESIUM 1.8 mg/dL (1.8-2.4); SODIUM 133 mmol/L (136-145); TROPONIN-I <0.06 ng/mL (<0.06)
[2019-06-05 07:50] LABS: INR 1.1
--- NOTE | 2019-06-05 07:52 | EKG ---
[address] [place] [address] ELECTROCARDIOGRAM REPORT Name: ALLISON VALVERDE Room #: 236-P ADM IN M.R.#: [id number] Admission: 06/04/19 Attend Phys: Mohinder Philippe MD Discharge: Date of : 57 Report #: [id number] THIS REPORT FOR: //name// [facility] ED Test Date: 2019-06-04 Test Time: 02:24:38 Pat Name: ALLISON VALVERDE Department: Room: 236 Gender: M Level Vial Grinder: CHEMA : 1955 Requested By: Cinda Esquivel Order Number: [id number] MD: Quentin Lance Measurements Intervals [place] Rate: 56 P: RI: QRS: -70 QRSD: 176 T: 45 QT: 544 QTc: 526 Interpretive Statements Atrial fibrillation RBBB and LAFB Left ventricular hypertrophy Compared to ECG 04/02/2019 09:03:14 Atrial fibrillation has replaced sinus rhythm Right bundle-branch block now present Electronically Signed On 06-05-2019 7:52:01 REGIONAL BUSINESS MANAGER by Quentin Lance [email or web address] <ELECTRONICALLY SIGNED> By: Quentin Lance MD, [facility] 06/05/19 0752 3 3 Quentin Lance MD, [facility] /EPI
--- NOTE | 2019-06-05 09:16 | NUR ---
Once stable and ready to start enteral nutrition, recommend nepro at goal 50ml/hr if going to continue to pursue aggressive treatment
--- NOTE | 2019-06-05 09:44 | HC ---
[facility] [place] [address] CONSULTATION Name: ALLISON VALVERDE Room #: 236-P ADM IN M.R.#: [id number] Admission: 06/04/19 Attend Phys: Mohinder Philippe MD Discharge: Date of : 57 Report #: [id number] THIS REPORT FOR: //name// CC: Karoline Alvarez REASON FOR CONSULTATION: End-stage renal disease. REASON FOR PRESENTATION: Post arrest. HISTORY OF PRESENT ILLNESS: This is a 63 year old who is maintained on hemodialysis every Tuesday, Tuesday and Tuesday. Unfortunately, the patient has not been compliant with his dialysis regimen. He was found down in his facility. It is not really clear how long the patient has been down, EMT was called and the resuscitation process was initiated on the patient. Initial rhythm was asystole. The patient received epinephrine, bicarbonate, intubated and brought to the Emergency Room. In the Emergency Room, the patient had received calcium, epinephrine, continued resuscitation and then moved to the Intensive Care Unit for further management and plan. Potassium on presentation was 6.7 and has gone down to 6.1. Blood gas on presentation showed a pH of 6.9 with a pCO2 of 79. As stated above, the patient has been noncompliant with his hemodialysis and missed dialysis on many occasions. I had a lengthy discussion with the patient's sister regarding the patient. Overall, she had expressed for me her wishes to discontinue medical care and proceed with palliative, comfort care. PAST MEDICAL HISTORY: 1. End-stage renal disease. 2. Diabetes mellitus. 3. Hypertension. 4. Cardiomyopathy. 5. Severe mitral regurgitation. 6. Mild aortic regurgitation. 7. Bipolar disorder. 8. Post-cholecystectomy. 9. Noncompliance with dialysis. 10. History of pancreatitis. 11. COPD. SOCIAL HISTORY: Resides in a facility. No reported drug or alcohol abuse. FAMILY HISTORY: Diabetes mellitus runs in the family. ALLERGIES: CONTRAST and PENICILLIN. REVIEW OF SYSTEMS: Unobtainable given the patient's current medical condition. [facility] [address] [place] [address] CONSULTATION Name: ALLISON VALVERDE Room #: 236-P ADM IN M.R.#: [id number] Admission: 06/04/19 Attend Phys: Mohinder Philippe MD Discharge: Date of : 57 Report #: [id number] MEDICATIONS: Listed amongst his medications: 1. Catapres. 2. Carvedilol. 3. Amlodipine. 4. Risperdal. 5. Insulin. PHYSICAL EXAMINATION: GENERAL: The patient is currently intubated, fixed pupils bilaterally. VITAL SIGNS: Pulse rate is 62, respiratory rate is 20, blood pressure is 122/71. HEAD AND NECK: ET tube in place. CHEST: Decreased air entry bilaterally. CARDIOVASCULAR: No rub detected. ABDOMEN: Soft, nontender. LOWER EXTREMITIES: +1 edema. LABORATORY DATA: Reviewed. Sodium is 131, potassium 6.1, BUN is 91, creatinine is 8.6. Blood gas initially showed a pH of 6.9 with a pCO2 of 79 and a lactic acid of 5.6. IMPRESSION AND PLAN: 1. Status post cardiopulmonary arrest. 2. End-stage renal disease, noncompliance with dialysis. 3. Hyperkalemia. 4. I had a lengthy discussion with the patient's sister who is the DPOA. The patient has been extremely noncompliant with his dialysis. The patient had previously taken himself off dialysis for some time. He was then reinitiated on hemodialysis. I explained the gravity of the situation for the patient's sister. He is status post cardiopulmonary arrest. She expressed for me that she wants her brother to be no code. She wants to proceed with palliative, comfort measure. No hemodialysis. No hypothermia protocol. <ELECTRONICALLY SIGNED> By: Jasen Montgomery MD 06/05/19 0944 0920 0937 Jasen Montgomery MD /nt
--- NOTE | 2019-06-05 10:21 | NUR ---
Case opened to follow for dc planning. Pt known to cm from a visit in Mar 2019. He is a ltc resident at [facility] and has lived there since December of this year. He lived in a facility in [place], [place] prior to that. Pt's mother Lizzie and sister Meredith live locally and are his next of kin contacts. Message left for [facility] to see if he has completed an AD/DPOA since that time. Pt's sister is on her way with their mother to visit. They thought the pt had completed a DPOA document during his last admission. [employer] checked with medical records and nothing is on file. The pt has a history of non compliance with dialysis. He is on service with [facility]. He functions at a w/c level at the facility and is a smoker. The pt has a hx of ESRD, HTN, COPD, and mutliple mental health issues. The pt is s/p cardiac arrest and currently intubated. Renal spoke with the pt's sister and was initially a DNR with a palliative care consult;however he spoke with her again and family reversed that decision. Palliative care consult cancelled and pt is a full code with hypothermia protocal in process. Family is on their way in this morning. Support provided. Will follow.
--- NOTE | 2019-06-05 11:29 | NUR ---
ON HYPOTHERMIA PROTOCOL.(SEE FLOWSHEET FOR DOCUMENTATION). VITALS STABLE, FAMILY CAME TO THE BEDSIDE AT 1115, MESSAGE SENT TO DR. ZARAGOZA WHO CAME AND UPDATED FAMILY. FAMILY STATES THEY'LL TALK TO OTHER FAMILY MEMBERS AND MAKE DECISIONS ON POC.
--- NOTE | 2019-06-05 12:08 | 2DMMODE ---
[facility] [address] [place] [address] 2 D/M-MODE ECHOCARDIOGRAM Name: ALLISON VALVERDE Room #: 236-P ADM IN M.R.#: [id number] Admission: 06/04/19 Attend Phys: Eliu Up Discharge: Date of : 57 Report #: [id number] THIS REPORT FOR: //name// APPROVED REPORT Study performed: 06/05/2019 10:46:40 EXAM: Comprehensive 2D, Doppler, and color-flow Echocardiogram Patient Location: ICU Room #: 236 Status: routine BSA: 2.13 HR: 48 bpm BP: 109/59 mmHg Rhythm: NSR/ANAM Other Information Study Quality: Good Indications Status post cardiac arrest. CHF. Hx: Cardiomyopathy, COPD, ESRD, HTN, HLP, CVA. 2D Dimensions RVDd: 46.42 mm IVSd: 16.09 (7-11mm) LVOT Diam: 24.62 (18-24mm) LVDd: 45.65 mm PWd: 16.89 (7-11mm) LVDs: 37.75 (25-40mm) Aortic Root: 39.90 mm Volumes Left Atrial Volume (Systole) Single Plane 4CH: 56.01 mL Single Plane 2CH: 55.70 mL LA ESV Index: 29.00 mL/m2 Aortic Valve AoV Peak Jose Enrique.: 0.97 m/s AO Peak Gr.: 3.75 mmHg LVOT Max P.04 mmHg LVOT Max V: 0.71 m/s VALERIE Vmax: 3.51 cm2 Mitral Valve E/A Ratio: 1.2 MV Decel. Time: 209.[address] [facility] [address] [address] 2 D/M-MODE ECHOCARDIOGRAM Name: ALLISON VALVERDE Room #: 236-P ADM IN [facility].#: [id number] Admission: 06/04/19 Attend Phys: Eliu Up Discharge: Date of : 57 Report #: [id number] MV E Max Jose Enrique.: 0.66 m/s MV A Jose Enrique.: 0.55 m/s MV PHT: 60.83 ms IVRT: 93.43 ms Pulmonary Valve PV Peak Jose Enrique.: 0.63 m/s PV Peak Gr.: 1.60 mmHg Tricuspid Valve TR Peak Jose Enrique.: 3.32 m/s RAP Estimate: 10.00 mmHg TR Peak Gr.: 44.01 mmHg PA Pressure: 54.00 mmHg Left Ventricle The left ventricle is normal size. There is global hypokinesis of the left ventricle. Moderate concentric left ventricular hypertrophy. Left ventricular systolic function is severely decreased. LVEF is 30-35%. Moderate diastolic dysfunction is present (pseudonormal filling). Right Ventricle Right ventricle is dilated and severely hypokinetic. Atria The left atrium size is normal. The right atrium size is normal. Aortic Valve The aortic valve is mildly sclerotic, trileaflet. Mild aortic regurgitation. There is no aortic valvular stenosis. Mitral Valve The mitral valve is normal in structure. Mild mitral regurgitation. Tricuspid Valve The tricuspid valve is normal in structure. Moderate tricuspid regurgitation. Estimated PAP is 55mmHg. Pulmonic Valve The pulmonary valve is normal in structure. Mild to moderate pulmonic regurgitation. Great Vessels Aortic root is mildly dilated. Ascending aorta is not well visualized. IVC is dilated and collapses <50% with [facility] [address] [place] [address] 2 D/M-MODE ECHOCARDIOGRAM Name: ALLISON VALVERDE Room #: 236-P ADM IN .R.#: [id number] Admission: 06/04/19 Attend Phys: Eliu Up Discharge: Date of : 57 Report #: [id number] inspiration. Pericardium Small pericardial effusion. <Conclusion> Left ventricular systolic function is severely decreased. There is global hypokinesis of the left ventricle. Moderate concentric left ventricular hypertrophy. LVEF is 30-35%. Moderate diastolic dysfunction The aortic valve is mildly sclerotic, trileaflet. Mild aortic regurgitation, no stenosis. The mitral valve is normal in structure. Mild mitral regurgitation. Moderate tricuspid regurgitation. Estimated pulmonary artery pressure of 55mmHg. Small pericardial effusion. <ELECTRONICALLY SIGNED> By: Quentin Lance MD, FACC 06/05/19 1208 1208 07 Quentin Lance MD, [facility] /INF
--- NOTE | 2019-06-05 12:33 | NUR ---
PATIENT STARTED REWARMING AT 1215.
--- NOTE | 2019-06-05 16:47 | NUR ---
FAXED CLINICAL UPDATE TO [facility] RECEIVED CONFIRMATION AND LEFT MSG WITH KERRI IN ADM . DP TO FOLLOW.
[2019-06-06] VITALS (54 sets, daily range): BP systolic 80–125; BP diastolic 31–79
--- NOTE | 2019-06-06 06:00 | NUR ---
PT IN REWARMING PHASE OF HYPOTHERMIA FOR THE MAJORITY OF THE NIGHT. EIGHT HOURS INTO REWARMING, PT WAS STILL SEVERAL DEGREES (CELSIUS) FROM GOAL TEMP, SO SWATHI HUGGER APPLIED. PT REACHED GOAL TEMP (36.5 CELSIUS) AT 0300 THIS MORNING. PT IS STILL UNRESPONSIVE. PT DOES HAVE A GAG REFLEX AND PUPILS ARE REACTIVE TO LIGHT, BUT SLUGGISH. INSULIN GTT INFUSING OVERNIGHT AND TURNED OFF AT 0430 THIS MORNING. WILL CONTINUE TO MONITOR.
--- NOTE | 2019-06-06 11:45 | NUR ---
ON THE VENT, HYPOTHERMIA COMPLETED AND PATIENT IS NORMOTHERMIC. NON RESPONSIVE AT THIS TIME. VITALS STABLE AND TOLERATING HEMODIALYSIS WELL. CALL RECEIVED FROM PATIENT'S SISTER WHO STATED WANTED TO TALK TO DR. ZARAGOZA REGARDING POC AND HOW TO PROCEED. MESSAGE SENT TO DR. ZARAGOZA AND STATED WILL CALL THE SISTER. WILL CONTINUE WITH CURRENT POC.
[2019-06-07] VITALS (24 sets, daily range): BP systolic 83–121; BP diastolic 58–73
[2019-06-07 07:43] LABS: BE(vivo) 0 mmol/L (-2 to +3); HCO3 26.3 mmol/L (22.0-26.0); PCO2 49.5 mmHg (35.0-45.0); PO2 122.5 mmHg (80.0-100.0); pH 7.343 (7.360-7.450); sO2 98.2 % (92.0-98.0)
--- NOTE | 2019-06-07 07:49 | NUR ---
NO CHANGES OVERNIGHT. PT ON NO SEDATION. PT HAS BEEN POSTURING WITH STIMULATION AND HAS A WEAK COUGH/GAG WITH INLINE SUCTIONING. WILL CONTINUE TO MONITOR.
[2019-06-07 09:11] LABS: BE(vivo) -1.7 mmol/L (-2 to +3); HCO3 24.8 mmol/L (22.0-26.0); PCO2 48.7 mmHg (35.0-45.0); PO2 76.1 mmHg (80.0-100.0); sO2 94.2 % (92.0-98.0)
[2019-06-07 09:12] LABS: pH 7.324 (7.360-7.450)
[2019-06-08] VITALS (21 sets, daily range): BP systolic 112–147; BP diastolic 60–80
--- NOTE | 2019-06-08 07:38 | NUR ---
PT INTUBATED AND ON VENT. POSTURES WITH STIMULATION AND SUCTIONING. PT'S EXTREMITIES BECAME INCREASINGLY RIGID OVERNIGHT. PT'S EYES ROLLED BACK SINCE YESTERDAY DURING THE DAY. AGONAL BREATHING NOTED. PT GIVEN ATIVAN X1 AND VERSED X1. PT CONTINUED TO POSTURE, BUT EXTREMETIES WERE NOT RIGID. FAMILY WILL BE HERE AT 1500 TO DISCUSS PLAN OF CARE. WILL CONTINUE TO MONITOR.
--- NOTE | 2019-06-08 15:14 | NUR ---
PATIENT CAME IN AT 1450 STATED THEY WERE READY TO MAKE PATIENT COMFORTABLE. CALL PLACED TO DR. DASILVA AND DR. FOX. DR. DASILVA CALLED BACK AND TALKED WITH ABRAM'S SISTER AND WAS AGREEABLE TO COMFORT MEASURES. RT NOTIFIED.
--- NOTE | 2019-06-08 15:36 | NUR ---
FAMILY AT THE BEDSIDE, MEDS GIVEN FOR AIR HUNGER AND PATIENT EXTUBATED BY RT PER THEIR REQUEST AT 1538.
--- NOTE | 2019-06-08 17:26 | NUR ---
ASSUMED CARE OF PATIENT AT 1630. BREATHING LABORED/AIR HUNGER. GIVEN MORPHINE ORDERED. PT'S FAMILY AT BEDSIDE. SUPPORT GIVEN. WILL CONTINUE TO MONITOR PT.
[2019-06-09] VITALS (7 sets, daily range): BP systolic 42–135; BP diastolic 20–73
--- NOTE | 2019-06-09 02:37 | NUR ---
PT. OXYGENATION NOW AT 58% AND DROPPING. PT. REMAINS COMFORTABLE ON COMFORT CARE MEASURES. WILL CONTINUE TO MONITOR.
--- NOTE | 2019-06-09 04:27 | NUR ---
PT. REMAINS ON COMFORT CARE. ASSESSMENTS AND VITAL SIGNS CHARTED. CONTINUE TO OLLOW POC. WILL CONTINUE TO MONITOR.
--- NOTE | 2019-06-09 05:42 | NUR ---
PT. AT 0454. [facility] CALLED, PT. IS CANDIDATE FOR ORGAN DONATION. REFER TO PACKET. NEXT OF KIN NOTIFIED, ALL CONSULTS CALLED. DR. DASILVA TO SIGN THE CERTIFICATE.
--- NOTE | 2019-06-15 13:29 | HC ---
[facility] [place] [address] CONSULTATION Name: ALLISON VALVERDE Room #: 236-P [facility] IN M.R.#: [id number] Admission: 06/04/19 Attend Phys: Mohinder Philippe MD Discharge: 06/09/19 Date of : 57 Report #: [id number] THIS REPORT FOR: //name// CC: Mohinder Philippe Earl Akkulugari DATE OF SERVICE: 06/04/2019 HISTORY OF PRESENT ILLNESS: This is a 63-year-old male patient who is unable to provide any history at all. None of the family member is here. I talked to the nurses looking after this patient. I talked to admitting nurse practitioner. This patient is being evaluated to prognosticate the patient for post hypoxic encephalopathy. From all indications, it looks like the patient is noncompliant and he had become unresponsive. Initially, the family has made him comfort care, but then they changed the plan and a neurological consultation was requested. The patient is unresponsive at the moment. REVIEW OF SYSTEMS: From the records and it indicates that he has a bipolar disorder, pancreatitis, history of tobacco abuse, COPD, diabetes mellitus that is all the relevant 14-point review of system, I can get. PAST MEDICAL HISTORY: By the fact that the patient is on dialysis. FAMILY HISTORY: Unavailable. SOCIAL HISTORY: Also unavailable. PHYSICAL EXAMINATION: Indicate that he opens his eyes occasionally. He does not follow any commands. No seizure activity has been noticed. He has no reflexes. He is intubated. His cardiac examination is stable. Blood pressure is 175/87, pulse is 46, respiration is 24. LABORATORY DATA: Indicate a white count of 10.5. His sodium is low. His potassium is high. He did have a CT scan of the head during this admission that showed old strokes. IMPRESSION: This patient appeared to have cardiac arrest. Neurological consultation is requested for hypoxic encephalopathy. Presently, we will just see how he does. We will not use any seizure medication. I will check an EEG first and follow up with the patient with you. [address] [address] CONSULTATION Name: ALLISON VALVERDE Room #: 236-[facility] IN M.R.#: [id number] Admission: 06/04/19 Attend Phys: Mohinder Philippe MD Discharge: 06/09/19 Date of : 57 Report #: [id number] Thank you very much for this referral and if you have any question, please feel free to contact me. <ELECTRONICALLY SIGNED> By: Vinny Encarnacion MD 06/15/19 1329 1635 2226 Vinny Encarnacion MD /nt
--- NOTE | 2019-06-15 13:30 | EEG ---
[facility] [place] [address] ELECTROENCEPHALOGRAM Name: ALLISON VALVERDE Room #: 236-P [facility] IN M.R.#: [id number] Admission: 06/04/19 Attend Phys: Mohinder Philippe MD Discharge: 06/09/19 Date of : 57 Report #: [id number] THIS REPORT FOR: //name// CC: Mohinder Philippe [facility] Akkulugari DATE OF SERVICE: 06/05/2019 This patient is post-code blue. EEG was attempted, but lot of muscle artifact is present. There does not appear to be any epileptiform activity. It is not possible to tell the background activity in this patient. IMPRESSION: Nondiagnostic EEG because of lot of muscle artifact. If further evaluation is desired, the patient should have an EEG done by giving him a paralyzing agent and when he is off of sedation. EEG does not appear to be showing any epileptiform activity. Thank you very much for this referral and if you have any question, please feel free to contact me. <ELECTRONICALLY SIGNED> By: Vinny Encarnacion MD 06/15/19 1330 1730 181 Vinny Encarnacion MD /nt
== END 2019-06-09 04:54 | DRG 207 ==
LOC: ER 02:17 → EROBS 05:22 → ICU 05:22
PROVIDERS: Emergency Medicine; Internal Medicine Pulmonary Disease; Pediatrics; ADMIT Hospitalist
PROC: 02HV33Z Insertion of Infusion Device into Superior Vena Cava, Percutaneous Approach (ICD-10-PCS; principal; 2019-06-04)
PROC: 0BH17EZ Insertion of Endotracheal Airway into Trachea, Via Natural or Artificial Opening (ICD-10-PCS; principal; 2019-06-04)
PROC: 5A1955Z Respiratory Ventilation, Greater than 96 Consecutive Hours (ICD-10-PCS; principal; 2019-06-04)
PROC: 5A1D70Z Performance of Urinary Filtration, Intermittent, Less than 6 Hours Per Day (ICD-10-PCS; principal; 2019-06-04)
PROC: 5A1D70Z Performance of Urinary Filtration, Intermittent, Less than 6 Hours Per Day (ICD-10-PCS; 2019-06-06)
DX: J96.01 Acute respiratory failure with hypoxia (principal); N18.6 End stage renal disease; G93.41 Metabolic encephalopathy; I50.41 Acute combined systolic (congestive) and diastolic (congestive) heart failure; J18.9 Pneumonia, unspecified organism; I13.2 Hypertensive heart and chronic kidney disease with heart failure and with stage 5 chronic kidney disease, or end stage renal disease; E87.2 Acidosis; G93.1 Anoxic brain damage, not elsewhere classified; E44.0 Moderate protein-calorie malnutrition; E87.1 Hypo-osmolality and hyponatremia; J44.0 Chronic obstructive pulmonary disease with (acute) lower respiratory infection; J96.02 Acute respiratory failure with hypercapnia; F31.9 Bipolar disorder, unspecified; E87.5 Hyperkalemia; D69.6 Thrombocytopenia, unspecified; Z66 Do not resuscitate; E11.65 Type 2 diabetes mellitus with hyperglycemia; I25.5 Ischemic cardiomyopathy; I25.10 Atherosclerotic heart disease of native coronary artery without angina pectoris; I34.0 Nonrheumatic mitral (valve) insufficiency; F60.2 Antisocial personality disorder; Z51.5 Encounter for palliative care; E87.8 Other disorders of electrolyte and fluid balance, not elsewhere classified; I46.9 Cardiac arrest, cause unspecified; T68.XXXA Hypothermia, initial encounter; D64.9 Anemia, unspecified; G25.3 Myoclonus; Z90.49 Acquired absence of other specified parts of digestive tract; Z86.73 Personal history of transient ischemic attack (TIA), and cerebral infarction without residual deficits; Z88.0 Allergy status to penicillin; Z88.8 Allergy status to other drugs, medicaments and biological substances; Z91.041 Radiographic dye allergy status; Z91.02 Food additives allergy status; Z91.040 Latex allergy status; Z91.15 Patient's noncompliance with renal dialysis; Z83.3 Family history of diabetes mellitus; Z68.25 Body mass index [BMI] 25.0-25.9, adult; Z91.14 Patient's other noncompliance with medication regimen; Z89.429 Acquired absence of other toe(s), unspecified side; Z87.891 Personal history of nicotine dependence; E11.22 Type 2 diabetes mellitus with diabetic chronic kidney disease
CPT/HCPCS: 10078; 32100